=== PATIENT | female | born 1990 | race Caucasian/White ===

== ENCOUNTER 2024-05-16 01:16 | Inpatient (IN) | payer OTHER ==
[2024-05-16] MEDS ORDERED: PHYTONADIONE 1 MG/0.5 ML SYRINGE ONE (01:56)
[2024-05-16] MEDS ORDERED: ERYTHROMYCIN 5 MG/GM OPHTH OINT 1 GM TUBE ONE (01:57)
[2024-05-16] MEDS ORDERED: OXYTOCIN IV ONE (01:57)
[2024-05-16] MEDS ORDERED: LIDOCAINE 0.5% (PF) 5 MG/ML (50 ML SDV) ONE (01:57)
[2024-05-16] MEDS ORDERED: NS IV ONE (01:57)
[2024-05-16] MEDS ORDERED: NALBUPHINE 10 MG/ML (10 ML MDV) ONE ×3 (06:10→11:47)
[2024-05-16] MEDS ORDERED: CITRIC ACID-SODIUM CITRATE 15 ML CUP ONE (10:49)
[2024-05-16] MEDS ORDERED: PHENYLEPHRINE 10 MG/ML VIAL ONE (10:56)
[2024-05-16] MEDS ORDERED: diphenhydrAMINE 50 MG/ML 1 ML VIAL ONE (10:56)
[2024-05-16] MEDS ORDERED: MORPHINE SULFATE (PF) 0.3 MG/0.3 ML SYR ONE (10:56)
[2024-05-16] MEDS ORDERED: KETOROLAC 30 MG/ML 1 ML VIAL ONE (10:56)
[2024-05-16] MEDS ORDERED: OXYTOCIN 30 UNITS/500 ML NS BAG IV ONE (10:56)
[2024-05-16] MEDS ORDERED: ACETAMINOPHEN TAB 500 MG TAB ONE ×2 (14:25→20:57)
[2024-05-16] MEDS ORDERED: IBUPROFEN 600 MG TAB PO ONE (17:22)
[2024-05-17] MEDS ORDERED: ACETAMINOPHEN TAB 500 MG TAB ONE ×4 (03:05→20:57)
[2024-05-17] MEDS ORDERED: IBUPROFEN 600 MG TAB PO ONE ×4 (05:58→23:47)
[2024-05-17] MEDS ORDERED: SENNOSIDES-DOCUSATE SODIUM 1 EACH TAB PO ONE (21:00)
[2024-05-18] MEDS ORDERED: ACETAMINOPHEN TAB 500 MG TAB ONE ×3 (02:59→08:46)
[2024-05-18] MEDS ORDERED: IBUPROFEN 600 MG TAB PO ONE ×2 (06:02→11:10)
[2024-05-18] MEDS ORDERED: SENNOSIDES-DOCUSATE SODIUM 1 EACH TAB PO ONE (08:35)
== END 2024-05-18 11:50 | disposition home or self-care (01) | DRG 788 ==
LOC: 4FBP 01:16 → UNDOADMIN 01:16 → UNDODISIN 05-18 11:50
PROVIDERS: ADMIT Obstetrics & Gynecology; ATTEND Obstetrics & Gynecology
PROC: 10D00Z1 Extraction of Products of Conception, Low, Open Approach (ICD-10-PCS; principal; 2024-05-16 10:30)
DX: O45.93 Premature separation of placenta, unspecified, third trimester (principal); Z37.0 Single live birth; Z3A.37 37 weeks gestation of pregnancy
CPT/HCPCS: 85461; 86850; 86870; 86880; 86900; 86901; 88307

== ENCOUNTER 2024-05-16 01:16 | Inpatient (IN) | payer OTHER | END 2024-05-18 12:50 | disposition home or self-care (01) | DRG 788 | LOC: 4FBP 01:16 → UNDODISIN 05-18 12:50 | PROVIDERS: ADMIT Obstetrics & Gynecology; ATTEND Obstetrics & Gynecology | PROC: 3E0234Z Introduction of Serum, Toxoid and Vaccine into Muscle, Percutaneous Approach (ICD-10-PCS; principal; 2024-05-16) | PROC: 10D00Z1 Extraction of Products of Conception, Low, Open Approach (ICD-10-PCS; principal; 2024-05-16) | PROC: 10907ZC Drainage of Amniotic Fluid, Therapeutic from Products of Conception, Via Natural or Artificial Opening (ICD-10-PCS; principal; 2024-05-16) | DX: O45.93 Premature separation of placenta, unspecified, third trimester (principal); O76 Abnormality in fetal heart rate and rhythm complicating labor and delivery; O26.893 Other specified pregnancy related conditions, third trimester; Z67.41 Type O blood, Rh negative; Z88.8 Allergy status to other drugs, medicaments and biological substances; Z88.5 Allergy status to narcotic agent; Z91.040 Latex allergy status; Z3A.37 37 weeks gestation of pregnancy; Z37.0 Single live birth ==

== ENCOUNTER 2024-06-21 20:57 | Emergency (ER) | payer OTHER ==
[2024-06-21 21:03] VITALS: RESP 18; TEMP 97.9
--- NOTE | 2024-06-21 21:22 | ED ---
Abdominal Pain HPI - General Chief Complaint: Abdominal Pain Stated Complaint: Abd Pain Time Seen by Provider: 06/21/24 21:05 Source: patient, RN notes reviewed Mode of arrival: ambulatory Limitations: no limitations - History of Present Illness Initial Comments: This is a 33-year-old female who presents to the emergency department for abdominal pain. Patient reports right upper quadrant abdominal pain that has been intermittent for the last month. States that this started after she had a on 05/16. Pain changes between sharp and stabbing. Reports associated nausea and vomiting. Denies any fever/chills or changes in bowel habits. Prior to the she had never experienced anything like this before. The pain wraps around into her back and epigastric region as well. Also reports shortness of breath. MD Complaint: abdominal pain - Related Data Home Medications Medication Instructions Recorded Confirmed Ferrous Sulfate [Iron] 325 mg PO DAILY 05/03/24 05/03/24 Vit No.179/Iron/Folic 1 each PO DAILY 05/03/24 05/03/24 [ Tablet] Previous Rx's Medication Instructions Recorded Ketorolac [Toradol] 10 mg PO Q6HR PRN #15 tab 06/21/24 Metoclopramide [Reglan] 10 mg PO Q6H PRN #15 tab 06/21/24 Allergies Allergy/AdvReac Type Severity Reaction Status Date / Time codeine Allergy Severe Anaphylaxis Verified 05/03/24 00:06 ondansetron Allergy Severe Anaphylaxis Verified 05/03/24 00:06 [From Zofran (as hydrochloride)] Review of Systems ROS Statement: Those systems with pertinent positive or pertinent negative responses have been documented in the HPI. ROS Other: All systems not noted in ROS Statement are negative. Past Medical History Past Medical History: No Reported History History of Any Multi-Drug Resistant Organisms: None Reported Past Surgical History: Appendectomy, Section Past Psychological History: No Psychological Hx Reported Smoking Status: Former smoker Past Alcohol Use History: None Reported Past Drug Use History: None Reported General Exam Limitations: no limitations General appearance: alert, in distress Head exam: Present: atraumatic, normocephalic, normal inspection Respiratory exam: Present: normal lung sounds bilaterally. Absent: respiratory distress, wheezes, rales, rhonchi, stridor Cardiovascular Exam: Present: regular rate, normal rhythm, normal heart sounds. Absent: systolic murmur, diastolic murmur, rubs, gallop, clicks GI/Abdominal exam: Present: soft, tenderness (RUQ), normal bowel sounds. Absent: distended Neurological exam: Present: alert, oriented X3, CN II-XII intact Psychiatric exam: Present: normal affect, normal mood Skin exam: Present: warm, dry, intact, normal color. Absent: rash Course Vital Signs 06/21/24 06/21/24 06/21/24 21:00 22:45 23:57 Temperature 97.9 F Pulse Rate 121 H 70 76 Respiratory 18 18 18 Rate Blood Pressure 140/96 140/90 119/70 O2 Sat by Pulse 100 100 99 Oximetry Medical Decision Making - Medical Decision Making This is a 33 year old female who presents to the emergency department for abdominal pain. Was pt. sent in by a medical professional or institution? @ -No Did you speak to anyone other than the patient for history? @ -No Did you review nursing and triage notes? @ -Yes, and I agree, it is accurate with regards to the patient's symptoms. Were old charts reviewed? @ -No Differential Diagnosis? @ -Differential Abdominal Pain Women: Appendicitis, Cholecystitis, diverticulosis, ischemic bowel, pancreatitis, hepatitis, UTI, gastroenteritis, AAA, incarcerated hernia, bowel obstruction, constipation, inflammatory bowel, hepatitis, peptic ulcer disease, splenic infarction, perforated viscus, vulvitis, ovarian torsion, PID, kidney stone, placenta abruption, this is not meant to be an all-inclusive list EKG interpreted by me (3pts min.)? @ -Not obtained X-rays interpreted by me (1pt min.)? @ -Not obtained CT interpreted by me (1pt min.)? @ -CTA of the chest obtained. My interpretation identifies no evidence of a p ulmonary embolus. CT scan of the abdomen and pelvis obtained. My interpretation identifies no bowel wall thickening or free air. U/S interpreted by me (1pt. min.)? @ -Gallbladder ultrasound obtained. My interpretation identifies no evidence of cholelithiasis. What testing was considered but not performed? (CT, X-rays, U/S, labs)? Why? @ -None What meds were considered but not given? Why? @ -None Did you discuss the management of the patient with other professionals? @ -No Did you reconcile home meds? @ -No Was smoking cessation discussed for >3mins.? @ -No Was critical care preformed (if so, how long)? @ -No Were there social determinants of health that impacted care today? How? (Homelessness, low income, unemployed, alcoholism, drug addiction, transportation, low edu. Level, literacy, decrease access to med. care, snf, rehab)? @ -No Was there de-escalation of care discussed even if they declined? (Discuss DNR or withdrawal of care, Hospice)? @ -No What co-morbidities impacted this encounter? (DM, HTN, Smoking, COPD, CAD, Cancer, CVA, Hep., AIDS, mental health diagnosis, sleep apnea, morbid obesity)? @ -None Was patient admitted / discharged? @ -Discharged. Lab work demonstrates an elevated D-dimer of 0.90. Lipase mildly elevated at 340. Lab work otherwise unremarkable. Urinalysis grossly contaminated. Gallbladder ultrasound obtained revealing no acute process. Given the right upper quadrant pain with radiation into the chest and back, tachycardia, and shortness of breath, CTA of the chest was obtained. We did also include the abdomen and pelvis for further evaluation. CTA of the chest and CT scan of the abdomen and pelvis revealed no acute process. Pain was managed in the emergency department. Prescription for Toradol and Reglan provided with dosing instructions reviewed. Patient discharged home in stable condition. Advised close follow up with her PCP. Case discussed with ED attending, Dr. Jacobs. Return precautions reviewed in depth, the patient is instructed to return to the emergency department with any new, worsening, or concerning symptoms. Patient verbalized understanding. Undiagnosed new problem with uncertain prognosis? @ -None Drug Therapy requiring intensive monitoring for toxicity (Heparin, Nitro, Insulin, Cardizem)? @ -None Were any procedures done? @ -None Diagnosis/symptom? @ -Right upper quadrant pain, nausea and vomiting Acute, or Chronic, or Acute on Chronic? @ -Acute Uncomplicated (without systemic symptoms) or Complicated (systemic symptoms)? @ -Uncomplicated Side effects of treatment? @ -None Exacerbation, Progression, or Severe Exacerbation] @ -Not applicable Poses a threat to life or bodily function? @ -No - Lab Data Result diagrams: 06/21/24 21:15 06/21/24 21:15 Lab Results 06/21/24 06/21/24 06/21/24 Range/Units 21:15 21:15 21:15 WBC 7.0 (3.8-10.6) k/uL RBC 4.81 (3.80-5.40) m/uL Hgb 10.7 L (11.4-16.0) gm/dL Hct 35.9 (34.0-46.0) % MCV 74.6 L D (80.0-100.0) fL MCH 22.2 L (25.0-35.0) pg MCHC 29.8 L (31.0-37.0) g/dL RDW 16.1 H (11.5-15.5) % Plt Count 405 D (150-450) k/uL MPV 8.0 Neutrophils % 73 % Lymphocytes % 19 % Monocytes % 5 % Eosinophils % 1 % Basophils % 1 % Neutrophils # 5.1 (1.3-7.7) k/uL Lymphocytes # 1.3 (1.0-4.8) k/uL Monocytes # 0.3 (0-1.0) k/uL Eosinophils # 0.0 (0-0.7) k/uL Basophils # 0.1 (0-0.2) k/uL Hypochromasia Marked Anisocytosis Slight Microcytosis Slight PT (10.0-12.5) sec INR (<1.2) APTT (22.0-30.0) sec D-Dimer (<0.60) mg/L FEU Sodium 139 (137-145) mmol/L Potassium 4.5 (3.5-5.1) mmol/L Chloride 101 (98-107) mmol/L Carbon Dioxide 26 (22-30) mmol/L Anion Gap 12 mmol/L BUN 13 (7-17) mg/dL Creatinine 0.62 (0.52-1.04) mg/dL Est GFR (CKD-EPI)AfAm >90 (>60 ml/min/1.73 sqM) Est GFR (CKD-EPI)NonAf >90 (>60 ml/min/1.73 sqM) Glucose 113 H (74-99) mg/dL Plasma Lactic Acid Young 1.1 (0.7-2.0) mmol/L Calcium 10.7 H (8.4-10.2) mg/dL Total Bilirubin 0.8 (0.2-1.3) mg/dL AST 32 (14-36) U/L ALT 18 (4-34) U/L Alkaline Phosphatase 138 H (38-126) U/L Troponin I (0.000-0.034) ng/mL Total Protein 9.1 H (6.3-8.2) g/dL Albumin 5.0 (3.5-5.0) g/dL Amylase 110 (30-110) U/L Lipase 340 H (23-300) U/L Urine Color Urine Appearance (Clear) Urine pH (5.0-8.0) Ur Specific [place] (1.001-1.035) Urine Protein (Negative) Urine Glucose (UA) (Negative) Urine Ketones (Negative) Urine Blood (Negative) Urine Nitrite (Negative) Urine Bilirubin (Negative) Urine Urobilinogen (<2.0) mg/dL Ur Leukocyte Esterase (Negative) Urine RBC (0-5) /hpf Urine WBC (0-5) /hpf Ur Squamous Epith Cells (0-4) /hpf Hyaline Casts (0-2) /lpf Urine Mucus (None) /hpf Urine Yeast (Budding) (None) /hpf 06/21/24 06/21/24 06/21/24 Range/Units 21:15 21:15 22:15 WBC (3.8-10.6) k/uL RBC (3.80-5.40) m/uL Hgb (11.4-16.0) gm/dL Hct (34.0-46.0) % MCV (80.0-100.0) fL MCH (25.0-35.0) pg MCHC (31.0-37.0) g/dL RDW (11.5-15.5) % Plt Count (150-450) k/uL MPV Neutrophils % % Lymphocytes % % Monocytes % % Eosinophils % % Basophils % % Neutrophils # (1.3-7.7) k/uL Lymphocytes # (1.0-4.8) k/uL Monocytes # (0-1.0) k/uL Eosinophils # (0-0.7) k/uL Basophils # (0-0.2) k/uL Hypochromasia Anisocytosis Microcytosis PT 10.1 (10.0-12.5) sec INR 0.9 (<1.2) APTT 22.7 (22.0-30.0) sec D-Dimer 0.90 H (<0.60) mg/L FEU Sodium (137-145) mmol/L Potassium (3.5-5.1) mmol/L Chloride (98-107) mmol/L Carbon Dioxide (22-30) mmol/L Anion Gap mmol/L BUN (7-17) mg/dL Creatinine (0.52-1.04) mg/dL Est GFR (CKD-EPI)AfAm (>60 ml/min/1.73 sqM) Est GFR (CKD-EPI)NonAf (>60 ml/min/1.73 sqM) Glucose (74-99) mg/dL Plasma Lactic Acid [place] (0.7-2.0) mmol/L Calcium (8.4-10.2) mg/dL Total Bilirubin (0.2-1.3) mg/dL AST (14-36) U/L ALT (4-34) U/L Alkaline Phosphatase (38-126) U/L Troponin I <0.012 (0.000-0.034) ng/mL Total Protein (6.3-8.2) g/dL Albumin (3.5-5.0) g/dL Amylase (30-110) U/L Lipase (23-300) U/L Urine Color Yellow Urine Appearance Cloudy H (Clear) Urine pH 6.0 (5.0-8.0) Ur Specific [place] 1.026 (1.001-1.035) Urine Protein 1+ H (Negative) Urine Glucose (UA) Negative (Negative) Urine Ketones Negative (Negative) Urine Blood Small H (Negative) Urine Nitrite Negative (Negative) Urine Bilirubin Negative (Negative) Urine Urobilinogen <2.0 (<2.0) mg/dL Ur Leukocyte Esterase Large H (Negative) Urine RBC 5 (0-5) /hpf Urine WBC 20 H (0-5) /hpf Ur Squamous Epith Cells 20 H (0-4) /hpf Hyaline Casts 7 H (0-2) /lpf Urine Mucus Many H (None) /hpf Urine Yeast (Budding) Rare H (None) /hpf - Radiology Data Radiology results: report reviewed, image reviewed Disposition Clinical Impression: Abdominal pain, Nausea and vomiting Disposition: HOME SELF-CARE Condition: Good Instructions (If sedation given, give patient instructions): Abdominal Pain (ED) Additional Instructions: Return to the emergency department with any new, worsening, or concerning symptoms. Take the Toradol with Tylenol as needed for pain relief. If you choose to take the Toradol, do not take any other anti-inflammatories such as ibuprofen, take one or the other. You can take the Reglan up to every 6 hours as needed for nausea and vomiting. Follow up with your primary care provider in 1-2 days. Prescriptions: Metoclopramide [Reglan] 10 mg PO Q6H PRN #15 tab PRN Reason: Nausea And Vomiting Ketorolac [Toradol] 10 mg PO Q6HR PRN #15 tab PRN Reason: Pain Is patient prescribed a controlled substance at d/c from ED?: No Referrals: Gilbert Can MD [Primary Care Provider] - 1-2 days
[2024-06-21] MEDS: HYDROmorphone 0.5 MG/0.5 ML SYRINGE IVP STA ×2 (21:23→23:55)
[2024-06-21] MEDS: METOCLOPRAMIDE 5 MG/ML 2 ML VIAL IVP STA (21:24)
[2024-06-21] MEDS: SODIUM CHLORIDE 0.9% 1,000 ML IV STA (21:24)
[2024-06-21] MEDS: KETOROLAC 15 MG/ML 1 ML VIAL IVP STA (21:24)
[2024-06-21 21:34] LABS: Anisocytosis Slight; Basophils # (A) 0.1 k/uL (0-0.2); Basophils % (A) 1 %; Eosinophils % (A) 1 %; HGB 10.7 gm/dL (11.4-16.0); Hypochromasia Marked; Lymphocytes # (A) 1.3 k/uL (1.0-4.8); Lymphocytes % (A) 19 %; MCH 22.2 pg (25.0-35.0); MCHC 29.8 g/dL (31.0-37.0); MCV 74.6 fL (80.0-100.0); Microcytosis Slight; Monocytes # (A) 0.3 k/uL (0-1.0); Monocytes % (A) 5 %; Neutrophils # (A) 5.1 k/uL (1.3-7.7); Neutrophils % (A) 73 %; RBC 4.81 m/uL (3.80-5.40); RDW 16.1 % (11.5-15.5)
[2024-06-21 21:36] LABS: HCT 35.9 % (34.0-46.0); Platelet Count 405 k/uL (150-450)
[2024-06-21 21:39] LABS: ALT 18 U/L (4-34); AST 32 U/L (14-36); African American GFR (CKD) >90 (>60 ml/min/1.73 sqM); Alkaline Phosphatase 138 U/L (38-126); Amylase 110 U/L (30-110); Anion Gap 12 mmol/L; Blood Urea Nitrogen 13 mg/dL (7-17); Calcium 10.7 mg/dL (8.4-10.2); Carbon Dioxide 26 mmol/L (22-30); Chloride 101 mmol/L (98-107); Glucose 113 mg/dL (74-99); Lipase 340 U/L (23-300); Non-African American GFR(CKD) >90 (>60 ml/min/1.73 sqM); Potassium 4.5 mmol/L (3.5-5.1); Sodium 139 mmol/L (137-145); Total Bilirubin 0.8 mg/dL (0.2-1.3); Total Protein 9.1 g/dL (6.3-8.2)
--- NOTE | 2024-06-21 22:08 | US ---
EXAMINATION TYPE: US gallbladder DATE OF EXAM: 06/21/2024 COMPARISON: CT 2016 CLINICAL INDICATION: Female, 33 years old with history of RUQ pain; Pain since 05/20/24. Hx appendecto my. TECHNIQUE: Multiple sonographic images of the right upper quadrant are obtained. FINDINGS: EXAM MEASUREMENTS: Liver Length: 13.0 cm Gallbladder Wall: 0.24 cm CBD: 0.45 cm Right Kidney: 10.8 x 4.9 x 3.4 cm SHOP FITTER NOTES: Exam is limited due to gas. Pancreas: Slightly limited. Duct measures 2.2 mm at body. Liver: Appears wnl Gallbladder: Appears anechoic Evidence for sonographic Milian's sign: no CBD: Portions seen appear wnl Right Kidney: No hydronephrosis or masses seen IMPRESSION: 1. Unremarkable right upper quadrant ultrasound [facility], , 06/21/2024 10:05 PM
[2024-06-21 22:51] LABS: INR 0.9 (<1.2); Partial Thromboplastin Time 22.7 sec (22.0-30.0); Prothrombin Time 10.1 sec (10.0-12.5)
[2024-06-21 23:07] LABS: Appearance,Urine Cloudy (Clear); Bilirubin,Urine Negative (Negative); Blood,Urine Small (Negative); Budding Yeast,Urine Rare /hpf; Color,Urine Yellow; Glucose,Urine (UA) Negative (Negative); Hyaline Casts,Urine 7 /lpf (0-2); Ketones,Urine Negative (Negative); Leukocyte Esterase,Urine Large (Negative); Mucus,Urine Many /hpf; Nitrite,Urine Negative (Negative); Protein,Urine 1+ (Negative); RBC,Urine 5 /hpf (0-5); Specific Gravity,Urine 1.026 (1.001-1.035); Squamous Epithelial Cell,Urine 20 /hpf (0-4); Urobilinogen,Urine <2.0 mg/dL (<2.0); WBC,Urine 20 /hpf (0-5)
--- NOTE | 2024-06-21 23:36 | CT ---
EXAMINATION TYPE: CT chest angio for PE DATE OF EXAM: 06/21/2024 COMPARISON: NONE HISTORY: PT HAD ON 8-[address] DLP: 201.8 mGycm. Automated Exposure Control for Dose Reduction was Utilized. CONTRAST: CTA scan of the thorax is performed with IV Contrast, patient injected with 100 mL of Isovue 370, pul monary embolism protocol. MIP Images are created on CT scanner and reviewed. FINDINGS: LUNGS: The lungs are grossly clear, there is no concerning parenchymal mass or focal consolidation id entified. There is no pleural effusion or pneumothorax seen. The tracheobronchial tree is patent. MEDIASTINUM: There is satisfactory enhancement of the pulmonary artery and its branches, there is no CT evidence for pulmonary embolism. There are no greater than 1 cm hilar or mediastinal lymph nodes. No cardiomegaly or pericardial effusion is seen. Enhancement of the thoracic aorta without aneurys m or dissection. OTHER: Please refer to same day CT abdomen and pelvis report for complete details on the upper abdome n. IMPRESSION: No CT evidence for acute pulmonary embolism. No suspicious acute pulmonary process. [facility], , 06/21/2024 11:34 PM
--- NOTE | 2024-06-21 23:45 | CT ---
EXAMINATION TYPE: CT abdomen pelvis w con DATE OF EXAM: 06/21/2024 HISTORY: PT HAD C-SECITON ON 8-15 EPIGASTRIC PAIN THAT GOES TO BACK. CT DLP: 341.2mGycm Automated Exposure Control for Dose Reduction was Utilized. CONTRAST: CT scan of the abdomen and pelvis is performed with IV Contrast, patient injected with 100 mL of Isov ue 370. COMPARISON: Prior CT 2016 FINDINGS: LUNG BASES: Please refer to same-day CT chest report for complete details of the lung bases. LIVER/GB: No significant abnormality is appreciated. PANCREAS: No significant abnormality is seen. SPLEEN: No significant abnormality is seen. ADRENALS: No significant abnormality is seen. KIDNEYS: No significant abnormality is seen. BOWEL: No abnormal small or large bowel dilatation. Appendix is surgically absent. UTERUS/ADNEXA: Anteverted uterus. LYMPH NODES: No greater than 1cm abdominal or pelvic lymph nodes are appreciated. OSSEOUS STRUCTURES: No significant abnormality is seen. OTHER: No significant additional abnormality is seen. IMPRESSION: No significant acute finding is seen to account for patient's clinical symptoms. [facility], , 06/21/2024 11:43 PM
[2024-06-21 23:57] VITALS: BP 119/70; PULSE 76
== END 2024-06-21 23:57 | disposition home or self-care (01) ==
LOC: EC 20:57
CPT/HCPCS: 36415; 71275; 74177; 76705; 80053; 81001; 82150; 83605; 83690; 84484; 85025; 85379; 85610; 85730; 96361; 96374; 96375; 96376; 99284

== ENCOUNTER 2024-06-23 18:42 | Inpatient (IN) | payer OTHER ==
--- NOTE | 2024-06-23 19:03 | ED ---
Abdominal Pain HPI - General Chief Complaint: Abdominal Pain Stated Complaint: Back Pain Time Seen by Provider: 06/23/24 18:59 Source: patient, RN notes reviewed Mode of arrival: ambulatory Limitations: no limitations - History of Present Illness Initial Comments: 33-year-old female presenting with epigastric pain x 1 month status post C- section on May 16. Patient describes pain as sharp and burning worse in the right upper quadrant that radiates to the back. Patient reports that pain is worse with food intake. Patient was seen for this 2 days ago in the ER where ultrasound of the gallbladder, CT of the chest rule out PE, and CT of the abdom en and pelvis all returned negative. She was discharged with no definitive diagnosis, but reports pain has become constant and is worsening in severity. Denies urinary symptoms, fever, chills. No drainage or redness from incision sites. She has been following with OB who initially told her he believed the pain was musculoskeletal. She does have a history of an appendectomy, no other abdominal surgeries besides . - Related Data Home Medications Medication Instructions Recorded Confirmed Ferrous Sulfate [Iron] 325 mg PO DAILY 05/03/24 05/03/24 Vit No.179/Iron/Folic 1 each PO DAILY 05/03/24 05/03/24 [ Tablet] Previous Rx's Medication Instructions Recorded Ketorolac [Toradol] 10 mg PO Q6HR PRN #15 tab 06/21/24 Metoclopramide [Reglan] 10 mg PO Q6H PRN #15 tab 06/21/24 Allergies Allergy/AdvReac Type Severity Reaction Status Date / Time codeine Allergy Severe Anaphylaxis Verified 06/23/24 18:45 ondansetron Allergy Severe Anaphylaxis Verified 06/23/24 18:45 [From Zofran (as hydrochloride)] Review of Systems ROS Statement: Those systems with pertinent positive or pertinent negative responses have been documented in the HPI. ROS Other: All systems not noted in ROS Statement are negative. Past Medical History Past Medical History: No Reported History History of Any Multi-Drug Resistant Organisms: None Reported Past Surgical History: Appendectomy, Section Past Psychological History: No Psychological Hx Reported Smoking Status: Former smoker Past Alcohol Use History: None Reported Past Drug Use History: None Reported General Exam Limitations: no limitations General appearance: alert, in no apparent distress, anxious Head exam: Present: atraumatic, normocephalic, normal inspection Respiratory exam: Present: normal lung sounds bilaterally. Absent: respiratory distress, wheezes, rales, rhonchi, stridor Cardiovascular Exam: Present: regular rate, normal rhythm, normal heart sounds. Absent: systolic murmur, diastolic murmur, rubs, gallop, clicks GI/Abdominal exam: Present: soft, normal bowel sounds. Absent: distended, tenderness, guarding, rebound, rigid Neurological exam: Present: alert, oriented X3 Psychiatric exam: Present: normal affect, normal mood Skin exam: Present: warm, dry, intact, normal color. Absent: rash Course Vital Signs 06/23/24 06/23/24 18:43 21:00 Temperature 97.9 F Pulse Rate 122 H 77 Respiratory 16 18 Rate Blood Pressure 141/93 117/68 O2 Sat by Pulse 99 99 Oximetry Medical Decision Making - Medical Decision Making Was pt. sent in by a medical professional or institution (, PA, CEO [employer] CO FOUNDER, urgent care, hospital, or care home...) When possible be specific @ -No Did you speak to anyone other than the patient for history (EMS, parent, family, police, friend...)? What history was obtained from this source @ -No Did you review nursing and triage notes (agree or disagree)? Why? @ -I reviewed and agree with nursing and triage notes Were old charts reviewed (outside hosp., previous admission, EMS record, old EKG, old radiological studies, urgent care reports/EKG's, care home records)? Report findings @ -ER visit from 2 days ago reviewed including lab work and CT scans all largely unremarkable Differential Diagnosis (chest pain, altered mental status, abdominal pain women, abdominal pain men, vaginal bleeding, weakness, fever, dyspnea, syncope, he adache, dizziness, GI bleed, back pain, seizure, CVA, palpatations, mental health, musculoskeletal)? @ -Differential Abdominal Pain Women: Appendicitis, Cholecystitis, diverticulosis, ischemic bowel, pancreatitis, hepatitis, UTI, gastroenteritis, AAA, incarcerated hernia, bowel obstruction, constipation, inflammatory bowel, hepatitis, peptic ulcer disease, splenic infarction, perforated viscus, vulvitis, ovarian torsion, PID, kidney stone, placenta abruption, this is not meant to be an all-inclusive list EKG interpreted by me (3pts min.). @ -As above X-rays interpreted by me (1pt min.). @ -None done CT interpreted by me (1pt min.). @ -None done U/S interpreted by me (1pt. min.). @ -None done What testing was considered but not performed or refused? (CT, X-rays, U/S, labs)? Why? @ -Imaging not performed due to patient had gallbladder ultrasound, CT of abdomen pelvis, and CT PE 2 days ago which were unremarkable What meds were considered but not given or refused? Why? @ -None Did you discuss the management of the patient with other professionals (professionals i.e. , PA, CEO [employer] FOUNDER, lab, RT, psych nurse, social insurance analyst, excelsior machine tender, teacher, dairy quality assurance officer, investment manager)? Give summary @ -I spoke with Dr. Carter who accepts admission at this time for intractable epigastric pain Was smoking cessation discussed for >3mins.? @ -No Was critical care preformed (if so, how long)? @ -No Were there social determinants of health that impacted care today? How? (Homelessness, low income, unemployed, alcoholism, drug addiction, transportation, low edu. Level, literacy, decrease access to med. care, correction, rehab)? @ -No Was there de-escalation of care discussed even if they declined (Discuss DNR or withdrawal of care, Hospice)? DNR status @ -No What co-morbidities impacted this encounter? (DM, HTN, Smoking, COPD, CAD, Cancer, CVA, ARF, Chemo, Hep., AIDS, mental health diagnosis, sleep apnea, morb id obesity)? @ -None Was patient admitted / discharged? Hospital course, mention meds given and rout e, prescriptions, significant lab abnormalities, going to OR and other pertinent info. @ -Patient was admitted. This is a 33-year-old female presenting with right upper quadrant abdominal pain x 1 month status post . Patient was seen for this complaint 2 days ago where ultrasound of the gallbladder, CT abdomen pelvis, CT chest PE was performed and all returned unremarkable. Patient is mildly tachycardic, she is afebrile, blood pressure is stable. Abdomen is soft and nontender. Patient is provided with IV fluids and analgesics. Laboratory studies including CBC, CMP, lipase, lactic acid, troponin are remarkable for decreased hemoglobin of 9.2, previously 10.7 2 days ago. Occult test was then performed which was negative. Upon reevaluation, patient continues to have intractable pain. I spoke with Dr. Carter who accepts admission at this time for intractable epigastric pain. Case was discussed with the ED attending Dr. Flores. Undiagnosed new problem with uncertain prognosis? @ -No Drug Therapy requiring intensive monitoring for toxicity (Heparin, Nitro, Insulin, Cardizem)? @ -No Were any procedures done? @ -No Diagnosis/symptom? @ -Intractable epigastric pain Acute, or Chronic, or Acute on Chronic? @ -Acute Uncomplicated (without systemic symptoms) or Complicated (systemic symptoms)? @ -Complicated Side effects of treatment? @ -No Exacerbation, Progression, or Severe Exacerbation? @ -No Poses a threat to life or bodily function? How? (Chest pain, [place], [place], pneumonia, PE, COPD, DKA, ARF, appy, cholecystitis, CVA, Diverticulitis, Homicidal, Suicidal, threat to staff... and all critical care pts) @ -Unlikely - Lab Data Result diagrams: 06/23/24 19:30 06/23/24 19:30 Lab Results 06/23/24 06/23/24 06/23/24 Range/Units 19:30 19:30 19:30 WBC 5.9 (3.8-10.6) k/uL RBC 4.10 (3.80-5.40) m/uL Hgb 9.2 L D (11.4-16.0) gm/dL Hct 30.3 L (34.0-46.0) % MCV 74.0 L (80.0-100.0) fL MCH 22.3 L (25.0-35.0) pg MCHC 30.2 L (31.0-37.0) g/dL RDW 16.3 H (11.5-15.5) % Plt Count 312 (150-450) k/uL MPV 8.4 Neutrophils % 76 % Lymphocytes % 16 % Monocytes % 5 % Eosinophils % 1 % Basophils % 1 % Neutrophils # 4.4 (1.3-7.7) k/uL Lymphocytes # 1.0 (1.0-4.8) k/uL Monocytes # 0.3 (0-1.0) k/uL Eosinophils # 0.0 (0-0.7) k/uL Basophils # 0.0 (0-0.2) k/uL Hypochromasia Marked Poikilocytosis Slight Anisocytosis Slight Microcytosis Slight Sodium 139 (137-145) mmol/L Potassium 4.1 (3.5-5.1) mmol/L Chloride 104 (98-107) mmol/L Carbon Dioxide 25 (22-30) mmol/L Anion Gap 10 mmol/L BUN 15 (7-17) mg/dL Creatinine 0.59 (0.52-1.04) mg/dL Est GFR (CKD-EPI)AfAm >90 (>60 ml/min/1.73 sqM) Est GFR (CKD-EPI)NonAf >90 (>60 ml/min/1.73 sqM) Glucose 107 H (74-99) mg/dL Plasma Lactic Acid Young 0.7 (0.7-2.0) mmol/L Calcium 10.0 (8.4-10.2) mg/dL Total Bilirubin 0.6 (0.2-1.3) mg/dL AST 30 (14-36) U/L ALT 16 (4-34) U/L Alkaline Phosphatase 99 (38-126) U/L Troponin I (0.000-0.034) ng/mL Total Protein 7.8 (6.3-8.2) g/dL Albumin 4.4 (3.5-5.0) g/dL Lipase 252 (23-300) U/L Urine Color Urine Appearance (Clear) Urine pH (5.0-8.0) Ur Specific Horatio (1.001-1.035) Urine Protein (Negative) Urine Glucose (UA) (Negative) Urine Ketones (Negative) Urine Blood (Negative) Urine Nitrite (Negative) Urine Bilirubin (Negative) Urine Urobilinogen (<2.0) mg/dL Ur Leukocyte Esterase (Negative) Urine RBC (0-5) /hpf Urine WBC (0-5) /hpf Ur Squamous Epith Cells (0-4) /hpf Calcium Oxalate Crystal (None) /hpf Amorphous Sediment (None) /hpf Hyaline Casts (0-2) /lpf Urine Mucus (None) /hpf Urine Yeast (Budding) (None) /hpf Stool Occult Blood (Negative) 06/23/24 06/23/24 06/23/24 Range/Units 19:30 21:38 23:33 WBC (3.8-10.6) k/uL RBC (3.80-5.40) m/uL Hgb (11.4-16.0) gm/dL Hct (34.0-46.0) % MCV (80.0-100.0) fL MCH (25.0-35.0) pg MCHC (31.0-37.0) g/dL RDW (11.5-15.5) % Plt Count (150-450) k/uL MPV Neutrophils % % Lymphocytes % % Monocytes % % Eosinophils % % Basophils % % Neutrophils # (1.3-7.7) k/uL Lymphocytes # (1.0-4.8) k/uL Monocytes # (0-1.0) k/uL Eosinophils # (0-0.7) k/uL Basophils # (0-0.2) k/uL Hypochromasia Poikilocytosis Anisocytosis Microcytosis Sodium (137-145) mmol/L Potassium (3.5-5.1) mmol/L Chloride (98-107) mmol/L Carbon Dioxide (22-30) mmol/L Anion Gap mmol/L BUN (7-17) mg/dL Creatinine (0.52-1.04) mg/dL Est GFR (CKD-EPI)AfAm (>60 ml/min/1.73 sqM) Est GFR (CKD-EPI)NonAf (>60 ml/min/1.73 sqM) Glucose (74-99) mg/dL Plasma Lactic Acid Young (0.7-2.0) mmol/L Calcium (8.4-10.2) mg/dL Total Bilirubin (0.2-1.3) mg/dL AST (14-36) U/L ALT (4-34) U/L Alkaline Phosphatase (38-126) U/L Troponin I <0.012 (0.000-0.034) ng/mL Total Protein (6.3-8.2) g/dL Albumin (3.5-5.0) g/dL Lipase (23-300) U/L Urine Color Yellow Urine Appearance Cloudy H (Clear) Urine pH 6.0 (5.0-8.0) Ur Specific [place]atio 1.036 H (1.001-1.035) Urine Protein 1+ H (Negative) Urine Glucose (UA) Negative (Negative) Urine Ketones 1+ H (Negative) Urine Blood Negative (Negative) Urine Nitrite Negative (Negative) Urine Bilirubin Negative (Negative) Urine Urobilinogen 3.0 (<2.0) mg/dL Ur Leukocyte Esterase Large H (Negative) Urine RBC 1 (0-5) /hpf Urine WBC 18 H (0-5) /hpf Ur Squamous Epith Cells 6 H (0-4) /hpf Calcium Oxalate Crystal Many H (None) /hpf Amorphous Sediment Rare H (None) /hpf Hyaline Casts 1 (0-2) /lpf Urine Mucus Many H (None) /hpf Urine Yeast (Budding) Rare H (None) /hpf Stool Occult Blood Negative (Negative) - EKG Data -: EKG Interpreted by Me EKG Comments: EKG reveals normal sinus rhythm with no ST changes. Ventricular rate 98 bpm, UT interval 129, QRS duration 98, QT/QTc 345/400 Disposition Clinical Impression: Intractable epigastric abdominal pain Disposition: ADMITTED IP TO THIS HOSP Referrals: Gilbert Can MD [Primary Care Provider] - 1-2 days Time of Disposition: 03:42
[2024-06-23] MEDS: KETOROLAC 15 MG/ML 1 ML VIAL IVP STA (19:42)
[2024-06-23] MEDS: SODIUM CHLORIDE 0.9% 1,000 ML IV STA (20:11)
[2024-06-23 20:32] LABS: Anisocytosis Slight; Basophils % (A) 1 %; Eosinophils % (A) 1 %; HCT 30.3 % (34.0-46.0); Hypochromasia Marked; Lymphocytes % (A) 16 %; MCH 22.3 pg (25.0-35.0); MCHC 30.2 g/dL (31.0-37.0); Mean Platelet Volume 8.4; Microcytosis Slight; Monocytes # (A) 0.3 k/uL (0-1.0); Monocytes % (A) 5 %; Neutrophils # (A) 4.4 k/uL (1.3-7.7); Neutrophils % (A) 76 %; Platelet Count 312 k/uL (150-450); Poikilocytosis Slight; RDW 16.3 % (11.5-15.5); WBC 5.9 k/uL (3.8-10.6)
[2024-06-23 20:41] LABS: HGB 9.2 gm/dL (11.4-16.0)
[2024-06-23 20:44] LABS: ALT 16 U/L (4-34); AST 30 U/L (14-36); African American GFR (CKD) >90 (>60 ml/min/1.73 sqM); Albumin 4.4 g/dL (3.5-5.0); Alkaline Phosphatase 99 U/L (38-126); Anion Gap 10 mmol/L; Blood Urea Nitrogen 15 mg/dL (7-17); Carbon Dioxide 25 mmol/L (22-30); Chloride 104 mmol/L (98-107); Glucose 107 mg/dL (74-99); Lipase 252 U/L (23-300); Non-African American GFR(CKD) >90 (>60 ml/min/1.73 sqM); Potassium 4.1 mmol/L (3.5-5.1); Sodium 139 mmol/L (137-145); Total Bilirubin 0.6 mg/dL (0.2-1.3); Total Protein 7.8 g/dL (6.3-8.2)
[2024-06-23] MEDS: HYDROmorphone 1 MG/ML 1 ML SYRINGE IVP STA (21:53)
[2024-06-23 22:04] LABS: Amorphous Sediment,Urine Rare /hpf; Appearance,Urine Cloudy (Clear); Bilirubin,Urine Negative (Negative); Blood,Urine Negative (Negative); Budding Yeast,Urine Rare /hpf; Calcium Oxalate Crystals,Urine Many /hpf; Color,Urine Yellow; Glucose,Urine (UA) Negative (Negative); Hyaline Casts,Urine 1 /lpf (0-2); Ketones,Urine 1+ (Negative); Leukocyte Esterase,Urine Large (Negative); Mucus,Urine Many /hpf; Nitrite,Urine Negative (Negative); Protein,Urine 1+ (Negative); RBC,Urine 1 /hpf (0-5); Specific Gravity,Urine 1.036 (1.001-1.035); Squamous Epithelial Cell,Urine 6 /hpf (0-4); WBC,Urine 18 /hpf (0-5)
[2024-06-24] MEDS: HYDROmorphone 1 MG/ML 1 ML SYRINGE IVP STA (00:49)
[2024-06-24] MEDS ORDERED: NALOXONE 0.4 MG/ML 1 ML VIAL IV PRN (03:39)
[2024-06-24] MEDS ORDERED: KETOROLAC 15 MG/ML 1 ML VIAL IVP PRN (03:39)
[2024-06-24] MEDS ORDERED: ACETAMINOPHEN TAB 325 MG TAB PO PRN (03:39)
[2024-06-24] MEDS: SODIUM CHLORIDE 0.9% 1,000 ML IV SCH (05:10)
[2024-06-24] MEDS: HYDROmorphone 1 MG/ML 1 ML SYRINGE IVP PRN (05:10)
--- NOTE | 2024-06-24 08:55 | P.HPIM ---
History of Present Illness H&P Date: 06/24/24 This is a 33-year-old female who presented to the emergency department with complaints of epigastric pain for the last month. Patient had a on May 16 and since patient has had a sharp and burning epigastric pain in the right upper quadrant that radiates to the back. Patient reports pain is worse with food intake. Recent imaging in the ER from a prior visit was negative. She reports pain is becoming more constant and is worsening in severity. Patient seen this morning laying in bed and is still reporting epigastric pain. Review of Systems Constitutional: Denies chills, Denies fever Cardiovascular: Denies chest pain, Denies dyspnea on exertion Respiratory: Denies cough, Denies dyspnea Gastrointestinal: Reports abdominal pain Musculoskeletal: Denies arm numbness/tingling, Denies leg numbness/tingling Neurological: Denies headaches, Denies weakness Past Medical History Past Medical History: No Reported History History of Any Multi-Drug Resistant Organisms: None Reported Past Surgical History: Appendectomy, Section Past Psychological History: No Psychological Hx Reported Smoking Status: Former smoker Past Alcohol Use History: None Reported Past Drug Use History: None Reported Medications and Allergies Home Medications Medication Instructions Recorded Confirmed Type Ferrous Sulfate [Iron] 325 mg PO DAILY 05/03/24 05/03/24 History Vit No.179/Iron/Folic 1 each PO DAILY 05/03/24 05/03/24 History [ Tablet] Ketorolac [Toradol] 10 mg PO Q6HR PRN #15 tab 06/21/24 Rx Metoclopramide [Reglan] 10 mg PO Q6H PRN #15 tab 06/21/24 Rx Allergies Allergy/AdvReac Type Severity Reaction Status Date / Time codeine Allergy Severe Anaphylaxis Verified 06/23/24 18:45 ondansetron Allergy Severe Anaphylaxis Verified 06/23/24 18:45 [From Zofran (as hydrochloride)] Physical Exam Vitals: Vital Signs Temp Pulse Pulse Resp BP BP Pulse Ox 06/24/24 07:00 98.1 F 82 16 129/92 100 06/24/24 05:30 104 H 18 118/85 97 06/24/24 04:00 71 18 110/66 97 06/24/24 00:00 73 18 121/72 99 06/23/24 21:00 77 18 117/68 99 06/23/24 18:43 97.9 F 122 H 16 141/93 99 Intake and Output 06/23/24 06/24/24 06/24/24 22:59 06:59 14:59 Other: Weight 53.524 kg 53.524 kg - Constitutional General appearance: cooperative, no acute distress - EENT Eyes: PERRLA - Neck Neck: no lymphadenopathy, normal ROM, no rigidity - Respiratory Respiratory: bilateral: CTA - Cardiovascular Rhythm: regular Heart sounds: normal: S1, S2 - Gastrointestinal General gastrointestinal: soft, tenderness - Integumentary Integumentary: normal, normal turgor - Psychiatric Psychiatric: A&O x's 3, appropriate affect, intact judgment & insight Results CBC & Chem 7: 06/23/24 19:30 06/23/24 19:30 Labs: Abnormal Lab Results - Last 24 Hours (Table) 06/23/24 06/23/24 06/23/24 Range/Units 19:30 19:30 21:38 Hgb 9.2 L D (11.4-16.0) gm/dL Hct 30.3 L (34.0-46.0) % MCV 74.0 L (80.0-100.0) fL MCH 22.3 L (25.0-35.0) pg MCHC 30.2 L (31.0-37.0) g/dL RDW 16.3 H (11.5-15.5) % Glucose 107 H (74-99) mg/dL Urine Appearance Cloudy H (Clear) Ur Specific [place] 1.036 H (1.001-1.035) Urine Protein 1+ H (Negative) Urine Ketones 1+ H (Negative) Ur Leukocyte Esterase Large H (Negative) Urine WBC 18 H (0-5) /hpf Ur Squamous Epith Cells 6 H (0-4) /hpf Calcium Oxalate Crystal Many H (None) /hpf Amorphous Sediment Rare H (None) /hpf Urine Mucus Many H (None) /hpf Urine Yeast (Budding) Rare H (None) /hpf Thrombosis Risk Factor Assmnt - Choose All That Apply Each Factor Represents 1 point: or Thrombosis Risk Factor Assessment Total Risk Factor Score: 1 Thrombosis Risk Factor Assessment Level: Low Risk Assessment and Plan (1) Intractable epigastric abdominal pain Current Visit: Yes Status: Acute Code(s): R10.13 - EPIGASTRIC PAIN SNOMED Code(s): 41231280 (2) History of Current Visit: Yes Status: Acute Code(s): Z98.891 - HISTORY OF UTERINE SCAR FROM PREVIOUS SURGERY SNOMED Code(s): 200053034 Plan: Start Protonix Consult to GI Patient seen and evaluated by nurse practitioner, physician in agreement with plan
[2024-06-24] MEDS: PANTOPRAZOLE 40 MG/10 ML VIAL IVP SCH (08:57)
[2024-06-24 20:24] LABS: Anisocytosis Slight; Basophils % (A) 1 %; Eosinophils # (A) 0.1 k/uL (0-0.7); Eosinophils % (A) 1 %; HCT 26.3 % (34.0-46.0); HGB 7.9 gm/dL (11.4-16.0); Hypochromasia Marked; Lymphocytes # (A) 1.2 k/uL (1.0-4.8); Lymphocytes % (A) 25 %; MCH 22.5 pg (25.0-35.0); MCHC 29.8 g/dL (31.0-37.0); MCV 75.5 fL (80.0-100.0); Mean Platelet Volume 9.4; Microcytosis Slight; Monocytes # (A) 0.3 k/uL (0-1.0); Monocytes % (A) 6 %; Neutrophils % (A) 66 %; Platelet Count 250 k/uL (150-450); Poikilocytosis Slight; RBC 3.49 m/uL (3.80-5.40); RDW 16.3 % (11.5-15.5); WBC 4.6 k/uL (3.8-10.6)
--- NOTE | 2024-06-25 08:55 | P.PN ---
Subjective Progress Note Date: 06/25/24 This is a 33-year-old female who presented to the emergency department with complaints of epigastric pain for the last month. Patient had a on May 16 and since patient has had a sharp and burning epigastric pain in the right upper quadrant that radiates to the back. Patient reports pain is worse with food intake. Recent imaging in the ER from a prior visit was negative. She reports pain is becoming more constant and is worsening in severity. Patient seen this morning laying in bed and is still reporting epigastric pain. 06/25/2024 Patient seen and evaluated laying in bed this morning. Patient reports she is still very uncomfortable from epigastric pain, and is having a difficult time getting comfortable in the bed. Patient was given Protonix yesterday, she reports it worked for a while but then pain returned. Dr. Blanco not vocational case manager this week. Will ask general surgeon to see her for possible scope. Patient reports it hurts to eat. Vitals are stable. Objective - Vital Signs Vital signs: Vital Signs Temp 98.2 F 06/25/24 07:10 Pulse 96 06/25/24 07:10 Resp 16 06/25/24 07:10 BP 131/82 06/25/24 07:10 Pulse Ox 99 06/25/24 07:10 FiO2 Intake & Output 06/24/24 06/25/24 06/25/24 18:59 06:59 18:59 Intake Total 954 Balance 954 Intake: Intake, IV Titration 600 Amount Sodium Chloride 0.9% 1, 600 000 ml @ 75 mls/hr IV . [id number] [facility] Rx#:[id number] Oral 354 Other: Voiding Method Toilet # Voids 2 - Constitutional General appearance: Present: cooperative, no acute distress - EENT Eyes: Present: PERRLA - Neck Neck: Present: normal ROM. Absent: lymphadenopathy, rigidity - Respiratory Respiratory: bilateral: CTA - Cardiovascular Rhythm: regular Heart sounds: normal: S1, S2 - Gastrointestinal General gastrointestinal: Present: soft, tenderness - Integumentary Integumentary: Present: normal, normal turgor - Psychiatric Psychiatric: Present: A&O x's 3, appropriate affect, intact judgment & insight - Labs CBC & Chem 7: 06/24/24 20:08 06/23/24 19:30 Labs: Abnormal Lab Results - Last 24 Hours (Table) 06/24/24 Range/Units 20:08 RBC 3.49 L (3.80-5.40) m/uL Hgb 7.9 L (11.4-16.0) gm/dL Hct 26.3 L (34.0-46.0) % MCV 75.5 L (80.0-100.0) fL MCH 22.5 L (25.0-35.0) pg MCHC 29.8 L (31.0-37.0) g/dL RDW 16.3 H (11.5-15.5) % Assessment and Plan (1) Intractable epigastric abdominal pain Current Visit: Yes Status: Acute Code(s): R10.13 - EPIGASTRIC PAIN SNOMED Code(s): 35703813 (2) History of Current Visit: Yes Status: Acute Code(s): Z98.891 - HISTORY OF UTERINE SCAR FROM PREVIOUS SURGERY SNOMED Code(s): 034408336 Plan: Consult to general surgery for possible EGD Check CBC and CMP in the morning. Patient seen and evaluated by nurse practitioner, physician in agreement with plan
[2024-06-25 09:10] LABS: ALT 11 U/L (8-44); AST 18 U/L (13-35); Albumin 3.8 g/dL (3.8-4.9); Albumin/Globulin Ratio 1.65 Ratio (1.60-3.17); Alkaline Phosphatase 94 U/L (41-126); Blood Urea Nitrogen 9.3 mg/dL (9.0-27.0); Calcium 8.9 mg/dL (8.7-10.3); Carbon Dioxide 24.4 mmol/L (21.6-31.8); Chloride 106 mmol/L (96-109); Globulin 2.3 g/dL (1.6-3.3); Glucose 91 mg/dL (70-110); Potassium 3.9 mmol/L (3.5-5.5); Sodium 140 mmol/L (135-145); Total Bilirubin <0.2 mg/dL (0.3-1.2); Total Protein 6.1 g/dL (6.2-8.2)
--- NOTE | 2024-06-25 11:35 | P.GSCN ---
History of Present Illness Consult date: 06/25/24 History of present illness: CHIEF COMPLAINT: Epigastric abdominal pain HISTORY OF PRESENT ILLNESS: This is a 33-year-old female who presented to hospital with complaints of epigastric and right upper quadrant abdominal pain x 1 month. Patient reports that the pain has been constant for the last week. She had been in the ER 2 days ago and had a gallbladder ultrasound completed that was normal and a CTA of the chest that ruled out PE and CT scan abdomen and pelvis which was normal. Patient reports nausea which is worse after eating. She has had some occasional episodes of vomiting. She has been taking Motrin almost 4 times a day 800 mg for the past 2 weeks. She reports having EGD she thinks about 12 years ago and does not remember results. She does have a known history of iron deficiency anemia. Patient denies any blood in her stools or melanotic stools. Patient had a in May 2024. PAST MEDICAL HISTORY: See below PAST SURGICAL HISTORY: See below MEDICATIONS: See below ALLERGIES: See below SOCIAL HISTORY: No illicit drug use. REVIEW OF SYSTEMS: CONSTITUTIONAL: Denies fever or chills. HEENT: Denies blurred vision, vision changes, or eye pain. Denies hemoptysis CARDIOVASCULAR: Denies chest pain or pressure. RESPIRATORY: No shortness of breath. GASTROINTESTINAL: See HPI for pertinent findings HEMATOLOGIC: Denies bleeding disorders. GENITOURINARY: Denies any blood in urine or increased urinary frequency. SKIN: Denies pruitis. Denies rash. PHYSICAL EXAM: VITAL SIGNS: Reviewed GENERAL: Well-developed in no acute distress. ABDOMEN: Soft. Nondistended. Epigastric and right upper quadrant tenderness with palpation NEUROLOGIC: Alert and oriented. Cranial nerves II through XII grossly intact. LABORATORY DATA: WBC 4.6 hemoglobin 9.2 down to 7.9. Hemoglobin 11.0 in May Sodium 140 potassium 3.9 creatinine 0.6 LFTs normal Lipase 252 Stool for occult blood negative IMAGING: Gallbladder ultrasound unremarkable right upper quadrant ultrasound. Chest CTA no evidence for PE. No acute pulmonary process CT scan abdomen pelvis reports no acute findings. ASSESSMENT: 1. Epigastric abdominal pain 2. Microcytic anemia 3. Daily NSAID use PLAN: -Patient scheduled for EGD with Dr. Gibbons today -Keep patient p.o. -Continue IV Protonix BID Physician Rn Referral note has been reviewed by physician. Signing provider agrees with the documented findings, assessment, and plan of care. I have personally seen and examined the patient, reviewed the DIVER TENDER /PAs history, exam and MDM and agree with the assessment and plan as written. Based on total visit time, I have performed more than 50% of the visit. As above: Patient with epigastric pain and anemia. Will proceed with EGD at this time. Past Medical History Past Medical History: No Reported History History of Any Multi-Drug Resistant Organisms: None Reported Past Surgical History: Appendectomy, Section Past Psychological History: No Psychological Hx Reported Smoking Status: Former smoker Past Alcohol Use History: None Reported Past Drug Use History: None Reported Medications and Allergies Home Medications Medication Instructions Recorded Confirmed Type No Known Home Medications 06/24/24 06/24/24 History Allergies Allergy/AdvReac Type Severity Reaction Status Date / Time codeine Allergy Severe Anaphylaxis Verified 06/24/24 10:20 ondansetron Allergy Severe Anaphylaxis Verified 06/24/24 10:20 [From Zofran (as hydrochloride)] Surgical - Exam Vital Signs Temp Pulse Resp BP Pulse Ox 97.9 F 122 H 16 141/93 99 06/23/24 18:43 06/23/24 18:43 06/23/24 18:43 06/23/24 18:43 06/23/24 18:43 Results - Labs 06/24/24 20:08 06/25/24 04:17 Abnormal Lab Results - Last 24 Hours (Table) 06/24/24 06/25/24 Range/Units 20:08 04:17 RBC 3.49 L (3.80-5.40) m/uL Hgb 7.9 L (11.4-16.0) gm/dL Hct 26.3 L (34.0-46.0) % MCV 75.5 L (80.0-100.0) fL MCH 22.5 L (25.0-35.0) pg MCHC 29.8 L (31.0-37.0) g/dL RDW 16.3 H (11.5-15.5) % Total Bilirubin <0.2 L (0.3-1.2) mg/dL Total Protein 6.1 L (6.2-8.2) g/dL Diabetes panel 06/25/24 Range/Units 04:17 Sodium 140 (135-145) mmol/L Potassium 3.9 (3.5-5.5) mmol/L Chloride 106 (96-109) mmol/L Carbon Dioxide 24.4 (21.6-31.8) mmol/L BUN 9.3 (9.0-27.0) mg/dL Creatinine 0.6 (0.6-1.5) mg/dL Glucose 91 (70-110) mg/dL Calcium 8.9 (8.7-10.3) mg/dL AST 18 (13-35) U/L ALT 11 (8-44) U/L Alkaline Phosphatase 94 (41-126) U/L Total Protein 6.1 L (6.2-8.2) g/dL Albumin 3.8 (3.8-4.9) g/dL Calcium panel 06/25/24 Range/Units 04:17 Calcium 8.9 (8.7-10.3) mg/dL Albumin 3.8 (3.8-4.9) g/dL Pituitary panel 06/25/24 Range/Units 04:17 Sodium 140 (135-145) mmol/L Potassium 3.9 (3.5-5.5) mmol/L Chloride 106 (96-109) mmol/L Carbon Dioxide 24.4 (21.6-31.8) mmol/L BUN 9.3 (9.0-27.0) mg/dL Creatinine 0.6 (0.6-1.5) mg/dL Glucose 91 (70-110) mg/dL Calcium 8.9 (8.7-10.3) mg/dL Adrenal panel 06/25/24 Range/Units 04:17 Sodium 140 (135-145) mmol/L Potassium 3.9 (3.5-5.5) mmol/L Chloride 106 (96-109) mmol/L Carbon Dioxide 24.4 (21.6-31.8) mmol/L BUN 9.3 (9.0-27.0) mg/dL Creatinine 0.6 (0.6-1.5) mg/dL Glucose 91 (70-110) mg/dL Calcium 8.9 (8.7-10.3) mg/dL Total Bilirubin <0.2 L (0.3-1.2) mg/dL AST 18 (13-35) U/L ALT 11 (8-44) U/L Alkaline Phosphatase 94 (41-126) U/L Total Protein 6.1 L (6.2-8.2) g/dL Albumin 3.8 (3.8-4.9) g/dL
[2024-06-25] MEDS ORDERED: PROPOFOL 10 MG/ML 20 ML VIAL IV ONE (14:38)
[2024-06-25] MEDS ORDERED: LIDOCAINE 1% INJ 10MG/ML (20 ML MDV) ONE (14:38)
[2024-06-25] MEDS: IV FLUID CONTINUATION 1,000 ML IV ONE (14:40)
--- NOTE | 2024-06-25 14:56 | P.PCN ---
Date of Procedure: 06/25/24 Procedure(s) Performed: Preoperative Dx: Epigastric pain Postoperative Dx: Duodenal ulcer, gastritis Procedure: EGD with Bx Anesthesia: Sedation Endoscopist: Dr. Gibbons Specimens: Antrum Endoscopic Procedure: The patient was on the endoscopy table in the left decubitus position. The Olympus gastroscope was inserted into the oropharynx and passed under direct visualization to the region of the third portion of the duodenum. From that point the scope was slowly withdrawn inspecting all surfaces carefully. There was a large ulcer involving the posterior wall of the first portion of the duodenum. No active bleeding or adherent clot was seen. There was no visible vessel. The pylorus was widely patent. The stomach was carefully inspected. There was mild gastritis present. A biopsy of the antrum took place to rule out H. pylori. Retroflexion revealed a normal hiatus. The esophagus was then carefully examined. There were no neoplastic inflammatory or polypoid lesions throughout the visualized esophagus. The patient was then taken to the recovery room in stable condition per anesthesia guidelines. Recommendations: Begin liquid diet. Continue Protonix. Add Carafate.
[2024-06-25] MEDS: SUCRALFATE 1 GM TAB PO SCH (17:37)
[2024-06-26] MEDS: ZOLPIDEM 5 MG TAB PO PRN (01:34)
--- NOTE | 2024-06-26 08:52 | P.PN ---
Subjective Principal diagnosis: PUD EGD positive for ulcer. Patient feels about the same. No new voiding difficultes Objective - Vital Signs Vital signs: Vital Signs Temp 98.4 F 06/26/24 02:01 Pulse 89 06/26/24 02:01 Resp 16 06/26/24 02:01 BP 131/90 06/26/24 02:01 Pulse Ox 100 06/26/24 02:01 FiO2 Intake & Output 06/25/24 06/26/24 06/26/24 18:59 06:59 18:59 Intake Total 1018 Balance 1018 Intake: IV 300 Intake, IV Titration 600 Amount Sodium Chloride 0.9% 1, 600 000 ml @ 75 mls/hr IV . [id number] [facility] Rx#:[id number] Oral 118 Other: Voiding Method Toilet # Voids 3 2 # Bowel Movements 0 - Constitutional General appearance: Present: average body habitus, cooperative - Neck Neck: Absent: lymphadenopathy - Respiratory Respiratory: bilateral: diminished - Cardiovascular Rhythm: regular Heart sounds: normal: S1, S2 Abnormal Heart Sounds: Absent: S3 Gallop - Gastrointestinal General gastrointestinal: Present: soft, tenderness - Integumentary Integumentary: Absent: cellulitis - Labs CBC & Chem 7: 06/24/24 20:08 06/25/24 04:17 Labs: Abnormal Lab Results - Last 24 Hours (Table) 06/25/24 Range/Units 04:17 Total Bilirubin <0.2 L (0.3-1.2) mg/dL Total Protein 6.1 L (6.2-8.2) g/dL Assessment and Plan (1) PUD (peptic ulcer disease) Current Visit: Yes Status: Acute Code(s): K27.9 - PEPTIC ULC, SITE UNSP, UNSP AC OR CHR, W/O HEMOR OR PERF SNOMED Code(s): 65462665 (2) History of Current Visit: Yes Status: Acute Code(s): Z98.891 - HISTORY OF UTERINE SCAR FROM PREVIOUS SURGERY SNOMED Code(s): 508797902 (3) Abdominal pain Current Visit: No Status: Acute Code(s): R10.9 - UNSPECIFIED ABDOMINAL PAIN SNOMED Code(s): 81192452 Plan: Discussed about prognosis. Continue PPI. Check CBC in am Hopefully DC in AM Time with Patient: Less than 30
[2024-06-26 09:05] LABS: HCT 26.6 % (37.2-46.3); HGB 7.5 g/dL (12.0-15.0); MCH 21.7 pg (27.0-32.0); MCHC 28.2 g/dL (32.0-37.0); MCV 77.1 FL (80.0-97.0); Mean Platelet Volume 10.9 FL (9.5-12.2); NRBC Per 100 WBC 0 X 10*3/uL (0.00-0.01); Platelet Count 296 X 10*3/uL (140-440); RBC 3.45 X 10*6/uL (4.10-5.20); RDW 15.7 % (11.5-14.5); WBC 4.33 X 10*3/uL (4.50-10.00)
[2024-06-26 09:16] LABS: ALT 14 U/L (8-44); AST 19 U/L (13-35); Albumin 3.7 g/dL (3.8-4.9); Albumin/Globulin Ratio 1.54 Ratio (1.60-3.17); Alkaline Phosphatase 91 U/L (41-126); Blood Urea Nitrogen 4.5 mg/dL (9.0-27.0); Calcium 9.2 mg/dL (8.7-10.3); Carbon Dioxide 26.2 mmol/L (21.6-31.8); Chloride 106 mmol/L (96-109); Globulin 2.4 g/dL (1.6-3.3); Glucose 86 mg/dL (70-110); Potassium 3.8 mmol/L (3.5-5.5); Sodium 141 mmol/L (135-145); Total Bilirubin <0.2 mg/dL (0.3-1.2); Total Protein 6.1 g/dL (6.2-8.2)
[2024-06-26] MEDS: DOCUSATE 100 MG CAP PO SCH (10:40)
--- NOTE | 2024-06-26 10:47 | P.PN ---
Subjective Progress Note Date: 06/26/24 CHIEF COMPLAINT: Epigastric pain HISTORY OF PRESENT ILLNESS: Patient status post EGD with results reporting duodenal ulcer and gastritis. Patient tolerated clear liquids. She does continue to have epigastric abdominal pain. She denies any nausea and vomiting. Denies any blood in stools. Patient still needing pain medication. Vitals stable. WBC 4.3 Hgb 7.5 PHYSICAL EXAM: VITAL SIGNS: Reviewed. GENERAL: Well-developed in no acute distress. ABDOMEN: Soft. Nondistended. Epigastric tenderness NEUROLOGIC: Alert and oriented. Cranial nerves II through XII grossly intact. ASSESSMENT: 1. Epigastric abdominal pain with anemia status post EGD revealing a duodenal ulcer and gastritis PLAN: -Increase Protonix to twice a day -Continue Carafate -Advance diet to full liquids -Repeat CBC in a.m. -Continue to monitor Physician Deputy Sheriff Chief note has been reviewed by physician. Signing provider agrees with the documented findings, assessment, and plan of care. Objective - Vital Signs Vital signs: Vital Signs Temp 98.3 F 06/26/24 07:00 Pulse 92 06/26/24 07:00 Resp 16 06/26/24 07:00 BP 117/77 06/26/24 07:00 Pulse Ox 99 06/26/24 07:00 FiO2 Intake & Output 06/25/24 06/26/24 06/26/24 18:59 06:59 18:59 Intake Total 1018 118 Balance 1018 118 Intake: IV 300 Intake, IV Titration 600 Amount Sodium Chloride 0.9% 1, 600 000 ml @ 75 mls/hr IV . [id number] [facility] Rx#:[id number] Oral 118 118 Other: Voiding Method Toilet # Voids 3 2 # Bowel Movements 0 - Labs CBC & Chem 7: 06/26/24 06:20 06/26/24 06:20 Labs: Abnormal Lab Results - Last 24 Hours (Table) 06/26/24 06/26/24 Range/Units 06:20 06:20 WBC 4.33 L (4.50-10.00) X 10*3/uL RBC 3.45 L (4.10-5.20) X 10*6/uL Hgb 7.5 L (12.0-15.0) g/dL Hct 26.6 L (37.2-46.3) % MCV 77.1 L (80.0-97.0) FL MCH 21.7 L (27.0-32.0) pg MCHC 28.2 L (32.0-37.0) g/dL RDW 15.7 H (11.5-14.5) % BUN 4.5 L (9.0-27.0) mg/dL BUN/Creatinine Ratio 7.50 L (12.00-20.00) Ratio Total Bilirubin <0.2 L (0.3-1.2) mg/dL Total Protein 6.1 L (6.2-8.2) g/dL Albumin 3.7 L (3.8-4.9) g/dL Albumin/Globulin Ratio 1.54 L (1.60-3.17) Ratio
[2024-06-26] MEDS: PANTOPRAZOLE 40 MG/10 ML VIAL IVP SCH (20:55)
--- NOTE | 2024-06-27 08:39 | P.PN ---
Subjective Progress Note Date: 06/27/24 This is a 33-year-old female who presented to the emergency department with complaints of epigastric pain for the last month. Patient had a on May 16 and since patient has had a sharp and burning epigastric pain in the right upper quadrant that radiates to the back. Patient reports pain is worse with food intake. Recent imaging in the ER from a prior visit was negative. She reports pain is becoming more constant and is worsening in severity. Patient seen this morning laying in bed and is still reporting epigastric pain. 06/25/2024 Patient seen and evaluated laying in bed this morning. Patient reports she is still very uncomfortable from epigastric pain, and is having a difficult time getting comfortable in the bed. Patient was given Protonix yesterday, she reports it worked for a while but then pain returned. Dr. Blanco not regional ehs manager this week. Will ask general surgeon to see her for possible scope. Patient reports it hurts to eat. Vitals are stable. 06/27/2024 Patient seen and evaluated laying in bed this morning. She underwent an EGD on Monday which showed a duodenal ulcer and gastritis. Her Protonix has been increased to twice a day. She is on a full liquid diet. Patient reports this morning she still has a lot of discomfort and has no appetite. Patient is r eluctant to go home today due to her discomfort. Objective - Vital Signs Vital signs: Vital Signs Temp 98.2 F 06/27/24 07:10 Pulse 96 06/27/24 07:10 Resp 17 06/27/24 07:10 BP 115/77 06/27/24 07:10 Pulse Ox 100 06/27/24 07:10 FiO2 Intake & Output 06/26/24 06/27/24 06/27/24 18:59 06:59 18:59 Intake Total 236 Balance 236 Intake: Oral 236 Other: # Voids 7 2 - Constitutional General appearance: Present: cooperative, no acute distress - EENT Eyes: Present: PERRLA - Neck Neck: Present: normal ROM. Absent: lymphadenopathy, rigidity - Respiratory Respiratory: bilateral: CTA - Cardiovascular Rhythm: regular Heart sounds: normal: S1, S2 - Gastrointestinal General gastrointestinal: Present: soft. Absent: tenderness - Integumentary Integumentary: Present: normal, normal turgor - Psychiatric Psychiatric: Present: A&O x's 3 - Labs CBC & Chem 7: 06/26/24 06:20 06/26/24 06:20 Labs: Abnormal Lab Results - Last 24 Hours (Table) 06/26/24 06/26/24 Range/Units 06:20 06:20 WBC 4.33 L (4.50-10.00) X 10*3/uL RBC 3.45 L (4.10-5.20) X 10*6/uL Hgb 7.5 L (12.0-15.0) g/dL Hct 26.6 L (37.2-46.3) % MCV 77.1 L (80.0-97.0) FL MCH 21.7 L (27.0-32.0) pg MCHC 28.2 L (32.0-37.0) g/dL RDW 15.7 H (11.5-14.5) % BUN 4.5 L (9.0-27.0) mg/dL BUN/Creatinine Ratio 7.50 L (12.00-20.00) Ratio Total Bilirubin <0.2 L (0.3-1.2) mg/dL Total Protein 6.1 L (6.2-8.2) g/dL Albumin 3.7 L (3.8-4.9) g/dL Albumin/Globulin Ratio 1.54 L (1.60-3.17) Ratio Assessment and Plan (1) Intractable epigastric abdominal pain Current Visit: Yes Status: Acute Code(s): R10.13 - EPIGASTRIC PAIN SNOMED Code(s): 25485489 (2) History of Current Visit: Yes Status: Acute Code(s): Z98.891 - HISTORY OF UTERINE SCAR FROM PREVIOUS SURGERY SNOMED Code(s): 266701422 (3) Duodenal ulcer Current Visit: Yes Status: Acute Code(s): K26.9 - DUODENAL ULCER, UNSP ACUTE OR CHRONIC, W/O HEMOR OR PERF SNOMED Code(s): 91465227 (4) Gastritis Current Visit: Yes Status: Acute Code(s): K29.70 - GASTRITIS, UNSPECIFIED, WITHOUT BLEEDING SNOMED Code(s): 3443523 Plan: Await CBC results from today. Advance diet as directed by surgeon. Anticipate discharge tomorrow. Patient seen and evaluated by nurse practitioner, physician in agreement with plan
--- NOTE | 2024-06-27 11:02 | P.PN ---
Subjective Progress Note Date: 06/27/24 CHIEF COMPLAINT: Epigastric pain HISTORY OF PRESENT ILLNESS: Patient status post EGD with results reporting duodenal ulcer and gastritis. Patient had a few sips of tomato soup yesterday which did upset the stomach. She continues to have some abdominal pain. She does report feeling a little better than yesterday. She denies any nausea or vomiting. Afebrile. Labs for today pending PHYSICAL EXAM: VITAL SIGNS: Reviewed. GENERAL: Well-developed in no acute distress. ABDOMEN: Soft. Nondistended. Epigastric tenderness NEUROLOGIC: Alert and oriented. Cranial nerves II through XII grossly intact. ASSESSMENT: 1. Epigastric abdominal pain with anemia status post EGD revealing a duodenal ulcer and gastritis PLAN: -Continue Protonix and Carafate -Continue full liquid diet -Continue to monitor hemoglobin -Educated patient to avoid acidy foods, such as tomato soup Physician Breast Puller note has been reviewed by physician. Signing provider agrees with the documented findings, assessment, and plan of care. Objective - Vital Signs Vital signs: Vital Signs Temp 98.2 F 06/27/24 07:10 Pulse 96 06/27/24 07:10 Resp 17 06/27/24 07:10 BP 115/77 06/27/24 07:10 Pulse Ox 100 06/27/24 07:10 FiO2 Intake & Output 06/26/24 06/27/24 06/27/24 18:59 06:59 18:59 Intake Total 236 118 Balance 236 118 Intake: Oral 236 118 Other: # Voids 7 2 - Labs CBC & Chem 7: 06/26/24 06:20 06/26/24 06:20
[2024-06-27 11:13] LABS: HCT 27.9 % (37.2-46.3); HGB 7.9 g/dL (12.0-15.0); MCH 21.9 pg (27.0-32.0); MCHC 28.3 g/dL (32.0-37.0); MCV 77.5 FL (80.0-97.0); Mean Platelet Volume 10.7 FL (9.5-12.2); NRBC Per 100 WBC 0 X 10*3/uL (0.00-0.01); Platelet Count 322 X 10*3/uL (140-440); RDW 15.8 % (11.5-14.5); WBC 5.73 X 10*3/uL (4.50-10.00)
[2024-06-27 11:23] LABS: ALT 13 U/L (8-44); AST 22 U/L (13-35); Albumin 3.8 g/dL (3.8-4.9); Albumin/Globulin Ratio 1.58 Ratio (1.60-3.17); Alkaline Phosphatase 95 U/L (41-126); Blood Urea Nitrogen 3.9 mg/dL (9.0-27.0); Calcium 9.2 mg/dL (8.7-10.3); Carbon Dioxide 26.5 mmol/L (21.6-31.8); Chloride 104 mmol/L (96-109); Globulin 2.4 g/dL (1.6-3.3); Glucose 92 mg/dL (70-110); Potassium 4.1 mmol/L (3.5-5.5); Sodium 141 mmol/L (135-145); Total Bilirubin <0.2 mg/dL (0.3-1.2); Total Protein 6.2 g/dL (6.2-8.2)
[2024-06-28] MEDS: IOPAMIDOL CONTRAST (ORAL USE) VIAL PO PRN (09:08)
--- NOTE | 2024-06-28 10:36 | P.PN ---
Subjective Progress Note Date: 06/28/24 CHIEF COMPLAINT: Epigastric pain HISTORY OF PRESENT ILLNESS: Patient status post EGD with results reporting large duodenal ulcer and gastritis on 06/25/24. Patient having increased epigastric abdominal pain today. She reports her pain feels the same as what brought her into the hospital. And she had 2 episodes of hematemesis. She is mildly tachycardic. CBC for today pending. Hgb yesterday 7.9 PHYSICAL EXAM: VITAL SIGNS: Reviewed. GENERAL: no acute distress. ABDOMEN: Soft. Nondistended. very tender to palpation to epigastric area NEUROLOGIC: Alert and oriented. Cranial nerves II through XII grossly intact. ASSESSMENT: 1. Epigastric abdominal pain with anemia status post EGD revealing a large duodenal ulcer and gastritis PLAN: -Due to patient's hematemesis and tachycardia with large duodenal ulcer recommend transfer to tertiary care center to be evaluated by GI service. There is no GI service available at this facility this week -Patient made n.p.o. -CT scan abdomen and pelvis ordered for further evaluation of abdominal pain and to rule out perforation -Continue Protonix and Carafate -Stat CBC reordered. The first CBC was canceled. Nursing staff aware that CBC needs to be drawn Physician Kiln Burner note has been reviewed by physician. Signing provider agrees with the documented findings, assessment, and plan of care. I have personally seen and examined the patient, reviewed the SHELTER CASE MANAGER /PAs history, exam and MDM and agree with the assessment and plan as written. Based on total visit time, I have performed more than 50% of the visit. As above: Patient with increasing pain and some hematemesis today. Interestingly her hemoglobin came up from 7.9-8.7. I ordered a stat CAT scan which I reviewed with Dr. Soto. CAT scan shows no evidence of perforation and there is good contrast opacification of the duodenum. Resume liquid diet. Patient with poor nutrition over the last 2 to 3 weeks. Will request PICC line and TPN initiation. Strongly consider transfer to tertiary care center where GI services are available in case increased or further bleeding is noted. Objective - Vital Signs Vital signs: Vital Signs Temp 98.0 F 06/28/24 07:10 Pulse 104 H 06/28/24 07:10 Resp 16 06/28/24 07:10 BP 101/70 06/28/24 07:10 Pulse Ox 100 06/28/24 07:10 FiO2 Intake & Output 06/27/24 06/28/24 06/28/24 18:59 06:59 18:59 Intake Total 218 118 Balance 218 118 Intake: Oral 218 118 Other: Voiding Method Toilet # Voids 3 3 # Bowel Movements 0 - Labs CBC & Chem 7: 06/28/24 11:33 06/28/24 06:04 Labs: Abnormal Lab Results - Last 24 Hours (Table) 06/27/24 06/27/24 Range/Units 06:51 06:51 RBC 3.60 L (4.10-5.20) X 10*6/uL Hgb 7.9 L (12.0-15.0) g/dL Hct 27.9 L (37.2-46.3) % MCV 77.5 L (80.0-97.0) FL MCH 21.9 L (27.0-32.0) pg MCHC 28.3 L (32.0-37.0) g/dL RDW 15.8 H (11.5-14.5) % BUN 3.9 L (9.0-27.0) mg/dL BUN/Creatinine Ratio 6.50 L (12.00-20.00) Ratio Total Bilirubin <0.2 L (0.3-1.2) mg/dL Albumin/Globulin Ratio 1.58 L (1.60-3.17) Ratio
[2024-06-28 11:04] LABS: ALT 12 U/L (8-44); AST 21 U/L (13-35); Albumin 3.9 g/dL (3.8-4.9); Alkaline Phosphatase 105 U/L (41-126); Blood Urea Nitrogen 4.1 mg/dL (9.0-27.0); Calcium 9.2 mg/dL (8.7-10.3); Carbon Dioxide 23.5 mmol/L (21.6-31.8); Chloride 104 mmol/L (96-109); Globulin 2.6 g/dL (1.6-3.3); Glucose 87 mg/dL (70-110); HCT 30.3 % (37.2-46.3); HGB 8.4 g/dL (12.0-15.0); MCH 21.4 pg (27.0-32.0); MCHC 27.7 g/dL (32.0-37.0); MCV 77.1 FL (80.0-97.0); Mean Platelet Volume 10.7 FL (9.5-12.2); NRBC Per 100 WBC 0 X 10*3/uL (0.00-0.01); Platelet Count 283 X 10*3/uL (140-440); Potassium 3.7 mmol/L (3.5-5.5); RBC 3.93 X 10*6/uL (4.10-5.20); RDW 15.6 % (11.5-14.5); Sodium 139 mmol/L (135-145); Total Bilirubin 0.3 mg/dL (0.3-1.2); Total Protein 6.5 g/dL (6.2-8.2); WBC 3.44 X 10*3/uL (4.50-10.00)
--- NOTE | 2024-06-28 11:28 | CT ---
EXAMINATION TYPE: CT abdomen pelvis w con DATE OF EXAM: 06/28/2024 COMPARISON: 06/21/2024 INDICATION: Epigastric pain DLP: 387.70 mGycm, Automated exposure control for dose reduction was used. CONTRAST: 100 mL of Isovue 300. Study performed with Oral Contrast TECHNIQUE: Axial images were obtained from above the diaphragm to the pubic rami in the axial plane a t 5 mm thick sections. Reconstructed images are reviewed on the computer in the coronal plane. FINDINGS: Limited CT sections are obtained the lung bases. The lung bases are clear. CT ABDOMEN: Liver: Normal Spleen: Normal Pancreas: Normal Adrenal glands: The adrenal glands are normal. Gallbladder: Normal Kidneys: No masses are evident. No hydronephrosis is present. No cysts are present. Delayed images were obtained through the kidneys, which remain unremarkable. Aorta: Normal Inferior vena cava: Normal. CT PELVIS: Loops of bowel within the abdomen and pelvis are normal. There are loops of bowel which are incom pletely distended or lack oral contrast limiting their evaluation. Appendix: The may be a prior appendectomy. No suspicious dilated tubular structures. Urinary bladder: Normal. Genitourinary structures: Uterus appears unremarkable. There are likely cysts on the left ovary. Righ t adnexa appears normal. Osseous structures: No suspicious lytic or sclerotic lesions. IMPRESSION: 1. No suspicious acute changes to account for epigastric pain. [facility] Manuelito Weldon, , 06/28/2024 11:26 AM
[2024-06-28 11:46] LABS: HCT 30.2 % (34.0-46.0); HGB 8.7 gm/dL (11.4-16.0); Hypochromasia Marked; MCH 21.7 pg (25.0-35.0); MCHC 28.9 g/dL (31.0-37.0); MCV 75.2 fL (80.0-100.0); Mean Platelet Volume 7.5; Microcytosis Slight; Platelet Count 304 k/uL (150-450); RBC 4.02 m/uL (3.80-5.40); RDW 15.8 % (11.5-15.5); WBC 3.4 k/uL (3.8-10.6)
--- NOTE | 2024-06-28 13:36 | P.PN ---
Subjective Progress Note Date: 06/28/24 33-year-old female presenting with epigastric pain x 1 month status post C- section on May 16. Patient describes pain as sharp and burning worse in the right upper quadrant that radiates to the back. Patient reports that pain is worse with food intake. Patient was seen for this 2 days ago in the ER where ultrasound of the gallbladder, CT of the chest rule out PE, and CT of the abdomen and pelvis all returned negative. She was discharged with no definitive diagnosis, but reports pain has become constant and is worsening in severity. Denies urinary symptoms, fever, chills. No drainage or redness from incision sites. She has been following with OB who initially told her he believed the pain was musculoskeletal. She does have a history of an appendectomy, no other abdominal surgeries besides . Patient underwent EGD on 06/25/2024-- There was a large ulcer involving the posterior wall of the first portion of the duodenum. No active bleeding or adherent clot was seen. There was no visible vessel. The pylorus was widely patent. The stomach was carefully inspected. There was mild gastritis present. A biopsy of the antrum took place to rule out H. pylori. Retroflexion revealed a normal hiatus. The esophagus was then carefully examined. There were no neoplastic inflammatory or polypoid lesions throughout the visualized esophagus. Patient with increasing pain and some hematemesis today. Interestingly her hemoglobin came up from 7.9-8.7. Stat CAT scan shows no evidence of perforation and there is good contrast opacification of the duodenum. Resume liquid diet. Patient with poor nutrition over the last 2 to 3 weeks. Will request PICC line and TPN initiation. Strongly consider transfer to tertiary care center where GI services are available in case increased or further bleeding is noted. Objective - Vital Signs Vital signs: Vital Signs Temp 98.0 F 06/28/24 07:10 Pulse 104 H 06/28/24 07:10 Resp 16 06/28/24 07:10 BP 101/70 06/28/24 07:10 Pulse Ox 100 06/28/24 07:10 FiO2 Intake & Output 06/27/24 06/28/24 06/28/24 18:59 06:59 18:59 Intake Total 218 118 Balance 218 118 Intake: Oral 218 118 Other: Voiding Method Toilet # Voids 3 3 # Bowel Movements 0 - Exam General appearance: alert, in no apparent distress, anxious Head exam: Present: atraumatic, normocephalic, normal inspection Respiratory exam: Present: normal lung sounds bilaterally. Absent: respiratory distress, wheezes, rales, rhonchi, stridor Cardiovascular Exam: Present: regular rate, normal rhythm, normal heart sounds. Absent: systolic murmur, diastolic murmur, rubs, gallop, clicks GI/Abdominal exam: Present: soft, normal bowel sounds. Absent: distended, tenderness, guarding, rebound, rigid Neurological exam: Present: alert, oriented X3 Psychiatric exam: Present: normal affect, normal mood Skin exam: Present: warm, dry, intact, normal color. Absent: rash - Labs CBC & Chem 7: 06/28/24 11:33 06/28/24 06:04 Labs: Abnormal Lab Results - Last 24 Hours (Table) 06/27/24 06/27/24 Range/Units 06:51 06:51 RBC 3.60 L (4.10-5.20) X 10*6/uL Hgb 7.9 L (12.0-15.0) g/dL Hct 27.9 L (37.2-46.3) % MCV 77.5 L (80.0-97.0) FL MCH 21.9 L (27.0-32.0) pg MCHC 28.3 L (32.0-37.0) g/dL RDW 15.8 H (11.5-14.5) % BUN 3.9 L (9.0-27.0) mg/dL BUN/Creatinine Ratio 6.50 L (12.00-20.00) Ratio Total Bilirubin <0.2 L (0.3-1.2) mg/dL Albumin/Globulin Ratio 1.58 L (1.60-3.17) Ratio Assessment and Plan Assessment: 1. Epigastric abdominal pain with anemia status post EGD revealing a large duodenal ulcer and gastritis 2. Acute blood loss anemia; globin remained stable 3. Hematemesis; patient reports 3 episodes of blood with vomiting; reports significant amount of fresh red blood with third episode PLAN: -Due to patient's hematemesis and tachycardia with large duodenal ulcer recommend transfer to tertiary care center to be evaluated by GI service. There is no GI service available at this facility this week -Patient made n.p.o. -CT scan abdomen and pelvis ordered for further evaluation of abdominal pain and to rule out perforation -Continue Protonix and Carafate -Stat CBC reordered. The first CBC was canceled. Nursing staff aware that CBC needs to be drawn
[2024-06-29 01:38] LABS: Basophils % (A) 1 %; Eosinophils # (A) 0.1 k/uL (0-0.7); Eosinophils % (A) 2 %; HCT 29.5 % (34.0-46.0); HGB 8.8 gm/dL (11.4-16.0); Hypochromasia Marked; Lymphocytes # (A) 1.5 k/uL (1.0-4.8); Lymphocytes % (A) 39 %; MCH 22.1 pg (25.0-35.0); MCHC 29.7 g/dL (31.0-37.0); MCV 74.4 fL (80.0-100.0); Mean Platelet Volume 7.5; Microcytosis Slight; Monocytes # (A) 0.4 k/uL (0-1.0); Monocytes % (A) 9 %; Neutrophils # (A) 1.8 k/uL (1.3-7.7); Neutrophils % (A) 47 %; Platelet Count 292 k/uL (150-450); Poikilocytosis Slight; RBC 3.97 m/uL (3.80-5.40); WBC 3.8 k/uL (3.8-10.6)
--- NOTE | 2024-06-29 09:40 | P.PN ---
Subjective Progress Note Date: 06/29/24 This is a 33-year-old female who has had active leading from a duodenal ulcer. Patient apparently has been accepted for transfer to [facility]. We are awaiting a bed. On exam vital signs appear stable. Abdomen soft. Duodenal ulcer. Patient was to receive supportive care. Objective - Vital Signs Vital signs: Vital Signs Temp 97.6 F 06/29/24 07:00 Pulse 93 06/29/24 07:00 Resp 16 06/29/24 07:00 BP 109/69 06/29/24 07:00 Pulse Ox 100 06/29/24 07:00 FiO2 Intake & Output 06/28/24 06/29/24 06/29/24 18:59 06:59 18:59 Intake Total 118 Balance 118 Intake: Oral 118 Other: Voiding Method Toilet # Voids 2 1 - Labs CBC & Chem 7: 06/29/24 00:46 06/28/24 06:04 Labs: Abnormal Lab Results - Last 24 Hours (Table) 06/28/24 06/28/24 06/28/24 Range/Units 06:04 06:04 11:33 WBC 3.44 L 3.4 L (4.50-10.00) X 10*3/uL RBC 3.93 L (4.10-5.20) X 10*6/uL Hgb 8.4 L 8.7 L (12.0-15.0) g/dL Hct 30.3 L 30.2 L (37.2-46.3) % MCV 77.1 L 75.2 L (80.0-97.0) FL MCH 21.4 L 21.7 L (27.0-32.0) pg MCHC 27.7 L 28.9 L (32.0-37.0) g/dL RDW 15.6 H 15.8 H (11.5-14.5) % BUN 4.1 L (9.0-27.0) mg/dL Creatinine 0.5 L (0.6-1.5) mg/dL BUN/Creatinine Ratio 8.20 L (12.00-20.00) Ratio Albumin/Globulin Ratio 1.50 L (1.60-3.17) Ratio 06/29/24 Range/Units 00:46 WBC (4.50-10.00) X 10*3/uL RBC (4.10-5.20) X 10*6/uL Hgb 8.8 L (12.0-15.0) g/dL Hct 29.5 L (37.2-46.3) % MCV 74.4 L (80.0-97.0) FL MCH 22.1 L (27.0-32.0) pg MCHC 29.7 L (32.0-37.0) g/dL RDW 16.0 H (11.5-14.5) % BUN (9.0-27.0) mg/dL Creatinine (0.6-1.5) mg/dL BUN/Creatinine Ratio (12.00-20.00) Ratio Albumin/Globulin Ratio (1.60-3.17) Ratio
[2024-06-29 09:46] LABS: Basophils # (A) 0.02 X 10*3/uL (0.00-0.10); Basophils % (A) 0.6 %; Eosinophils # (A) 0.07 X 10*3/uL (0.04-0.35); Eosinophils % (A) 2.1 %; HCT 28.7 % (37.2-46.3); HGB 8.1 g/dL (12.0-15.0); Lymphocytes # (A) 1.39 X 10*3/uL (0.90-5.00); Lymphocytes % (A) 41.4 %; MCH 21.5 pg (27.0-32.0); MCHC 28.2 g/dL (32.0-37.0); MCV 76.1 FL (80.0-97.0); Mean Platelet Volume 10.9 FL (9.5-12.2); Monocytes # (A) 0.34 X 10*3/uL (0.20-1.00); Monocytes % (A) 10.1 %; NRBC Per 100 WBC 0 X 10*3/uL (0.00-0.01); Neutrophils # (A) 1.53 X 10*3/uL (1.80-7.70); Neutrophils % (A) 45.5 %; Platelet Count 294 X 10*3/uL (140-440); RBC 3.77 X 10*6/uL (4.10-5.20); RDW 15.6 % (11.5-14.5); WBC 3.36 X 10*3/uL (4.50-10.00)
[2024-06-29 11:15] LABS: BUN/Creat Ratio 6.83 Ratio (12.00-20.00); Blood Urea Nitrogen 4.1 mg/dL (9.0-27.0); Calcium 9.2 mg/dL (8.7-10.3); Carbon Dioxide 24.4 mmol/L (21.6-31.8); Chloride 104 mmol/L (96-109); Glucose 89 mg/dL (70-110); Sodium 139 mmol/L (135-145)
--- NOTE | 2024-06-29 18:42 | P.PN ---
Subjective Progress Note Date: 06/29/24 33-year-old female presenting with epigastric pain x 1 month status post C- section on May 16. Patient describes pain as sharp and burning worse in the right upper quadrant that radiates to the back. Patient reports that pain is worse with food intake. Patient was seen for this 2 days ago in the ER where ultrasound of the gallbladder, CT of the chest rule out PE, and CT of the abdomen and pelvis all returned negative. She was discharged with no definitive diagnosis, but reports pain has become constant and is worsening in severity. Denies urinary symptoms, fever, chills. No drainage or redness from incision sites. She has been following with OB who initially told her he believed the pain was musculoskeletal. She does have a history of an appendectomy, no other abdominal surgeries besides . Patient underwent EGD on 06/25/2024-- There was a large ulcer involving the posterior wall of the first portion of the duodenum. No active bleeding or adherent clot was seen. There was no visible vessel. The pylorus was widely patent. The stomach was carefully inspected. There was mild gastritis present. A biopsy of the antrum took place to rule out H. pylori. Retroflexion revealed a normal hiatus. The esophagus was then carefully examined. There were no neoplastic inflammatory or polypoid lesions throughout the visualized esophagus. Patient with increasing pain and some hematemesis today. Interestingly her hemoglobin came up from 7.9-8.7. Stat CAT scan shows no evidence of perforation and there is good contrast opacification of the duodenum. Resume liquid diet. Patient with poor nutrition over the last 2 to 3 weeks. Will request PICC line and TPN initiation. Strongly consider transfer to tertiary care center where GI services are available in case increased or further bleeding is noted. 06/29/2024 Patient is seen and evaluated in room at bedside; continues to report abdominal pain; no further episode of hematemesis Vital signs are reviewed and remained stable Labs are reviewed and hemoglobin stayed stable at 8.1 [facility]; patient has been accepted; await bed availability Objective - Vital Signs Vital signs: Vital Signs Temp 97.6 F 06/29/24 07:00 Pulse 93 06/29/24 07:00 Resp 16 06/29/24 07:00 BP 109/69 06/29/24 07:00 Pulse Ox 100 06/29/24 07:00 FiO2 Intake & Output 06/28/24 06/29/24 06/29/24 18:59 06:59 18:59 Intake Total 118 236 Balance 118 236 Intake: Oral 118 236 Other: Voiding Method Toilet # Voids 2 1 - Exam General appearance: alert, in no apparent distress, anxious Head exam: Present: atraumatic, normocephalic, normal inspection Respiratory exam: Present: normal lung sounds bilaterally. Absent: respiratory distress, wheezes, rales, rhonchi, stridor Cardiovascular Exam: Present: regular rate, normal rhythm, normal heart sounds. Absent: systolic murmur, diastolic murmur, rubs, gallop, clicks GI/Abdominal exam: Present: soft, normal bowel sounds. Absent: distended, tenderness, guarding, rebound, rigid Neurological exam: Present: alert, oriented X3 Psychiatric exam: Present: normal affect, normal mood Skin exam: Present: warm, dry, intact, normal color. Absent: rash - Labs CBC & Chem 7: 06/29/24 04:55 06/29/24 04:52 Labs: Abnormal Lab Results - Last 24 Hours (Table) 06/29/24 06/29/24 06/29/24 Range/Units 00:46 04:52 04:55 WBC 3.36 L (4.50-10.00) X 10*3/uL RBC 3.77 L (4.10-5.20) X 10*6/uL Hgb 8.8 L 8.1 L (11.4-16.0) gm/dL Hct 29.5 L 28.7 L (34.0-46.0) % MCV 74.4 L 76.1 L (80.0-100.0) fL MCH 22.1 L 21.5 L (25.0-35.0) pg MCHC 29.7 L 28.2 L (31.0-37.0) g/dL RDW 16.0 H 15.6 H (11.5-15.5) % Neutrophils # 1.53 L (1.80-7.70) X 10*3/uL BUN 4.1 L (9.0-27.0) mg/dL BUN/Creatinine Ratio 6.83 L (12.00-20.00) Ratio Assessment and Plan Assessment: 1. Epigastric abdominal pain with anemia status post EGD revealing a large duodenal ulcer and gastritis 2. Acute blood loss anemia; globin remained stable 3. Hematemesis; patient reports 3 episodes of blood with vomiting; reports significant amount of fresh red blood with third episode PLAN: -Due to patient's hematemesis and tachycardia with large duodenal ulcer recommend transfer to tertiary care center to be evaluated by GI service. There is no GI service available at this facility this week -Patient made n.p.o. -CT scan abdomen and pelvis ordered for further evaluation of abdominal pain and to rule out perforation -Continue Protonix and Carafate -Stat CBC reordered. The first CBC was canceled. Nursing staff aware that CBC needs to be drawn
[2024-06-30 09:07] LABS: Basophils % (A) 1 %; Eosinophils # (A) 0.1 k/uL (0-0.7); Eosinophils % (A) 1 %; HCT 28.8 % (34.0-46.0); Hypochromasia Marked; Lymphocytes # (A) 1.1 k/uL (1.0-4.8); Lymphocytes % (A) 26 %; MCH 20.9 pg (25.0-35.0); MCHC 27.8 g/dL (31.0-37.0); MCV 75.4 fL (80.0-100.0); Mean Platelet Volume 7.8; Microcytosis Slight; Monocytes # (A) 0.3 k/uL (0-1.0); Monocytes % (A) 7 %; Neutrophils # (A) 2.7 k/uL (1.3-7.7); Neutrophils % (A) 63 %; Platelet Count 321 k/uL (150-450); RBC 3.81 m/uL (3.80-5.40); RDW 15.6 % (11.5-15.5); WBC 4.2 k/uL (3.8-10.6)
--- NOTE | 2024-06-30 09:34 | P.PN ---
Subjective Progress Note Date: 06/30/24 Patient main stable. She is awaiting transfer to [facility]. She has had no further signs of GI bleed. On exam vital signs appear stable. Abdomen soft. History of duodenal ulcer. Patient will be transferred for GI services at [facility]. Objective - Vital Signs Vital signs: Vital Signs Temp 97.6 F 06/30/24 07:00 Pulse 94 06/30/24 07:00 Resp 17 06/30/24 07:00 BP 98/68 06/30/24 07:00 Pulse Ox 100 06/30/24 07:00 FiO2 Intake & Output 06/29/24 06/30/24 06/30/24 18:59 06:59 18:59 Intake Total 354 Balance 354 Intake: Oral 354 Other: Voiding Method Toilet # Voids 4 1 - Labs CBC & Chem 7: 06/30/24 04:54 06/29/24 04:52 Labs: Abnormal Lab Results - Last 24 Hours (Table) 06/29/24 06/29/24 06/30/24 Range/Units 04:52 04:55 04:54 WBC 3.36 L (4.50-10.00) X 10*3/uL RBC 3.77 L (4.10-5.20) X 10*6/uL Hgb 8.1 L 8.0 L (12.0-15.0) g/dL Hct 28.7 L 28.8 L (37.2-46.3) % MCV 76.1 L 75.4 L (80.0-97.0) FL MCH 21.5 L 20.9 L (27.0-32.0) pg MCHC 28.2 L 27.8 L (32.0-37.0) g/dL RDW 15.6 H 15.6 H (11.5-14.5) % Neutrophils # 1.53 L (1.80-7.70) X 10*3/uL BUN 4.1 L (9.0-27.0) mg/dL BUN/Creatinine Ratio 6.83 L (12.00-20.00) Ratio
[2024-06-30 11:26] LABS: BUN/Creat Ratio 7.83 Ratio (12.00-20.00); Blood Urea Nitrogen 4.7 mg/dL (9.0-27.0); Calcium 9.3 mg/dL (8.7-10.3); Chloride 105 mmol/L (96-109); Glucose 106 mg/dL (70-110); Potassium 4.3 mmol/L (3.5-5.5); Sodium 138 mmol/L (135-145)
[2024-06-30] MEDS: HYDROmorphone 1 MG/ML 1 ML SYRINGE IVP PRN (13:13)
--- NOTE | 2024-06-30 13:23 | P.PN ---
Subjective Progress Note Date: 06/30/24 33-year-old female presenting with epigastric pain x 1 month status post C- section on May 16. Patient describes pain as sharp and burning worse in the right upper quadrant that radiates to the back. Patient reports that pain is worse with food intake. Patient was seen for this 2 days ago in the ER where ultrasound of the gallbladder, CT of the chest rule out PE, and CT of the abdomen and pelvis all returned negative. She was discharged with no definitive diagnosis, but reports pain has become constant and is worsening in severity. Denies urinary symptoms, fever, chills. No drainage or redness from incision sites. She has been following with OB who initially told her he believed the pain was musculoskeletal. She does have a history of an appendectomy, no other abdominal surgeries besides . Patient underwent EGD on 06/25/2024-- There was a large ulcer involving the posterior wall of the first portion of the duodenum. No active bleeding or adherent clot was seen. There was no visible vessel. The pylorus was widely patent. The stomach was carefully inspected. There was mild gastritis present. A biopsy of the antrum took place to rule out H. pylori. Retroflexion revealed a normal hiatus. The esophagus was then carefully examined. There were no neoplastic inflammatory or polypoid lesions throughout the visualized esophagus. Patient with increasing pain and some hematemesis today. Interestingly her hemoglobin came up from 7.9-8.7. Stat CAT scan shows no evidence of perforation and there is good contrast opacification of the duodenum. Resume liquid diet. Patient with poor nutrition over the last 2 to 3 weeks. Will request PICC line and TPN initiation. Strongly consider transfer to tertiary care center where GI services are available in case increased or further bleeding is noted. 06/29/2024 Patient is seen and evaluated in room at bedside; continues to report abdominal pain; no further episode of hematemesis Vital signs are reviewed and remained stable Labs are reviewed and hemoglobin stayed stable at 8.1 [facility]; patient has been accepted; await bed availability 06/30/2024 Patient is seen and evaluated in room at bedside; continues to report abdominal pain; no further hematemesis reported -Vital signs are reviewed and remained stable Lab review shows a WBC of 4.2, hemoglobin of 8 which is stable from 8.1 yesterd ay Patient remains on IV Protonix and Carafate; has been accepted at [facility] and await bed opening -General Surgery on board and agreeable with transfer given no GI coverage at our facility Objective - Vital Signs Vital signs: Vital Signs Temp 97.6 F 06/30/24 07:00 Pulse 94 06/30/24 07:00 Resp 17 06/30/24 07:00 BP 98/68 06/30/24 07:00 Pulse Ox 100 06/30/24 07:00 FiO2 Intake & Output 06/29/24 06/30/24 06/30/24 18:59 06:59 18:59 Intake Total 354 Balance 354 Intake: Oral 354 Other: Voiding Method Toilet # Voids 4 1 - Labs CBC & Chem 7: 06/30/24 04:54 06/30/24 04:54 Labs: Abnormal Lab Results - Last 24 Hours (Table) 06/29/24 06/29/24 Range/Units 04:52 04:55 WBC 3.36 L (4.50-10.00) X 10*3/uL RBC 3.77 L (4.10-5.20) X 10*6/uL Hgb 8.1 L (12.0-15.0) g/dL Hct 28.7 L (37.2-46.3) % MCV 76.1 L (80.0-97.0) FL MCH 21.5 L (27.0-32.0) pg MCHC 28.2 L (32.0-37.0) g/dL RDW 15.6 H (11.5-14.5) % Neutrophils # 1.53 L (1.80-7.70) X 10*3/uL BUN 4.1 L (9.0-27.0) mg/dL BUN/Creatinine Ratio 6.83 L (12.00-20.00) Ratio
--- NOTE | 2024-07-01 08:59 | P.DS ---
Providers Date of admission: 06/24/24 03:42 Attending physician: Gilbert Can Consults: 06/24/24 08:32 Consult Physician Routine Consulting Provider: Lynda Blanco Consult Reason/Comments: epigastric pain Do you want consulting provider notified?: Yes 06/25/24 08:30 Consult Physician Routine Consulting Provider: Giovanni Gibbons Consult Reason/Comments: epigastric pain Do you want consulting provider notified?: Yes Primary care physician: Gilbert Can - Discharge Diagnosis(es) (1) Intractable epigastric abdominal pain Current Visit: Yes Status: Acute (2) History of Current Visit: Yes Status: Acute (3) Duodenal ulcer Current Visit: Yes Status: Acute (4) Gastritis Current Visit: Yes Status: Acute Hospital Course: This is a 33-year-old female who presented to the emergency department with complaints of epigastric pain for the last month. Patient had a on May 16 and since patient has had a sharp and burning epigastric pain in the right upper quadrant that radiates to the back. Patient reports pain is worse with food intake. Recent imaging in the ER from a prior visit was negative. She reports pain is becoming more constant and is worsening in severity. Patient underwent an EGD on Monday of last week which found a duodenal ulcer and gastritis. She was started on Protonix and Carafate. Patient continues to have severe epigastric pain and discomfort. Over the weekend patient did have some hemoptysis and since no GI coverage at this facility, transfer was initiated to [facility]. Patient may be transferred to [facility] when bed is available. Patient seen and evaluated by nurse practitioner, physician in agreement with plan Plan - Discharge Summary New Discharge Prescriptions: New Sucralfate [Carafate] 1 gm PO AC-TID tab Pantoprazole [Protonix] 40 mg PO DAILY 30 Days #30 tab Discharge Medication List Pantoprazole [Protonix] 40 mg PO DAILY 30 Days #30 tab 07/01/24 [Rx] Sucralfate [Carafate] 1 gm PO AC-TID tab 07/01/24 [Rx] Follow up Appointment(s)/Referral(s): Gilbert Can MD [Primary Care Provider] - 1-2 days Activity/Diet/Wound Care/Special Instructions: FOR TRANSFER CALL [facility] - P: ([id number]) - ([phone]) Call to notify of transfer and inquire if policy requires authorization Discharge Disposition: OTHER INSTITUTION NOT DEFINED
[2024-07-01 09:08] LABS: Basophils # (A) 0.04 X 10*3/uL (0.00-0.10); Basophils % (A) 0.7 %; Eosinophils % (A) 1.8 %; HCT 27.8 % (37.2-46.3); HGB 7.8 g/dL (12.0-15.0); Lymphocytes # (A) 1.77 X 10*3/uL (0.90-5.00); Lymphocytes % (A) 32.5 %; MCH 21.3 pg (27.0-32.0); MCHC 28.1 g/dL (32.0-37.0); MCV 75.7 FL (80.0-97.0); Mean Platelet Volume 10.6 FL (9.5-12.2); Monocytes # (A) 0.44 X 10*3/uL (0.20-1.00); Monocytes % (A) 8.1 %; NRBC Per 100 WBC 0 X 10*3/uL (0.00-0.01); Neutrophils # (A) 3.08 X 10*3/uL (1.80-7.70); Neutrophils % (A) 56.7 %; Platelet Count 319 X 10*3/uL (140-440); RBC 3.67 X 10*6/uL (4.10-5.20); RDW 15.4 % (11.5-14.5); WBC 5.44 X 10*3/uL (4.50-10.00)
--- NOTE | 2024-07-01 13:23 | P.PN ---
Subjective Progress Note Date: 07/01/24 CHIEF COMPLAINT: Epigastric pain HISTORY OF PRESENT ILLNESS: Patient status post EGD with results reporting large duodenal ulcer and gastritis on 06/25/24. Patient reports that her pain is less today. She did have episode of vomiting yesterday with which she believes may have been a small streak of blood. Patient reports still no significant appetite. She is nauseous. Afebrile. WBC is 5.44 hemoglobin 7.8 platelets 310. Pathology reports a moderate chronic inactive gastritis with reactive lymphoid aggregate. Positive for H. pylori. PHYSICAL EXAM: VITAL SIGNS: Reviewed. GENERAL: no acute distress. ABDOMEN: Soft. Nondistended. Mild tenderness with palpation to epigastric area NEUROLOGIC: Alert and oriented. Cranial nerves II through XII grossly intact. ASSESSMENT: 1. Epigastric abdominal pain with anemia status post EGD revealing a large duodenal ulcer and gastritis 2. Positive H. pylori PLAN: -Start H. pylori antibiotic treatment at discharge -Advance diet to full liquids -Continue Protonix and Carafate -Consult GI service regarding the large duodenal ulcer -No need for transfer from surgical standpoint at this time due to patient no longer having any hematemesis and tachycardia has improved. GI service is also available this week. Physician Completion Supervisor note has been reviewed by physician. Signing provider agrees with the documented findings, assessment, and plan of care. I have personally seen and examined the patient, reviewed the [employer] /PAs history, exam and MDM and agree with the assessment and plan as written. Based on total visit time, I have performed more than 50% of the visit. As above: Patient still having pain 6-7 out of 10. No further hematemesis. 2 episodes of vomiting since Monday. Abdomen remains tender although less so than previous. Labs noted. Still no GI coverage. Will advance diet. Continue antiacids. Objective - Vital Signs Vital signs: Vital Signs Temp 97.6 F 07/01/24 07:00 Pulse 91 07/01/24 07:00 Resp 16 07/01/24 07:00 BP 95/67 07/01/24 07:00 Pulse Ox 100 07/01/24 07:00 FiO2 Intake & Output 06/30/24 07/01/24 07/01/24 18:59 06:59 18:59 Intake Total 929 375 Balance 929 375 Intake: Intake, IV Titration 575 Amount Sodium Chloride 0.9% 1, 575 000 ml @ 75 mls/hr IV . [id number] [facility] Rx#:[id number] Oral 354 375 Other: Voiding Method Toilet Toilet # Bowel Movements 0 - Labs CBC & Chem 7: 07/01/24 04:40 06/30/24 04:54 Labs: Abnormal Lab Results - Last 24 Hours (Table) 06/30/24 07/01/24 Range/Units 04:54 04:40 RBC 3.67 L (4.10-5.20) X 10*6/uL Hgb 7.8 L (12.0-15.0) g/dL Hct 27.8 L (37.2-46.3) % MCV 75.7 L (80.0-97.0) FL MCH 21.3 L (27.0-32.0) pg MCHC 28.1 L (32.0-37.0) g/dL RDW 15.4 H (11.5-14.5) % BUN 4.7 L (9.0-27.0) mg/dL BUN/Creatinine Ratio 7.83 L (12.00-20.00) Ratio
[2024-07-01 20:58] VITALS: BP 122/80; PULSE 99; RESP 20; TEMP 98.2
== END 2024-07-01 21:06 | disposition short-term general hospital (02) | DRG 391 ==
LOC: EC 18:42 → OBSVTOIN 06-24 03:42 → 6NMEDSUR 06-24 03:42
PROVIDERS: ADMIT Family Medicine; ATTEND Family Medicine
PROC: 0DB78ZX Excision of Stomach, Pylorus, Via Natural or Artificial Opening Endoscopic, Diagnostic (ICD-10-PCS; principal; 2024-06-25 08:10)
DX: K29.50 Unspecified chronic gastritis without bleeding (principal); K26.4 Chronic or unspecified duodenal ulcer with hemorrhage; D62 Acute posthemorrhagic anemia; R04.2 Hemoptysis; B96.81 Helicobacter pylori [H. pylori] as the cause of diseases classified elsewhere; D50.9 Iron deficiency anemia, unspecified; Z79.1 Long term (current) use of non-steroidal anti-inflammatories (NSAID); Z98.891 History of uterine scar from previous surgery; Z87.891 Personal history of nicotine dependence
CPT/HCPCS: 25605; 36415; 43239; 74177; 80048; 80053; 81001; 81025; 82272; 83605; 83690; 84484; 85025; 85027; 88305; 88341; 88342; 93005; 96361; 96374; 96375; 99285

== ENCOUNTER 2025-02-13 17:12 | Emergency (ER) | payer OTHER ==
[2025-02-13] MEDS: ACETAMINOPHEN TAB 500 MG TAB PO STA (17:52)
--- NOTE | 2025-02-13 17:57 | ED ---
Lower Extremity Injury HPI - General Chief Complaint: Extremity Injury, Lower Stated Complaint: L foot injury Time Seen by Provider: 02/13/25 17:31 Source: patient, RN notes reviewed Mode of arrival: ambulatory Limitations: no limitations - History of Present Illness Initial Comments: This is a 34-year-old female who presents to the emergency department for left heel pain. Patient states that she accidentally rolled her left heel outside yesterday and has since had pain to this area going up the leg. This is making it difficult to ambulate. Denies hitting her head or sustaining any other injuries. MD Complaint: foot injury - Related Data Previous Rx's Medication Instructions Recorded Pantoprazole [Protonix] 40 mg PO DAILY 30 Days #30 tab 07/01/24 Sucralfate [Carafate] 1 gm PO AC-TID tab 07/01/24 Allergies Allergy/AdvReac Type Severity Reaction Status Date / Time codeine Allergy Severe Anaphylaxis Verified 06/24/24 10:20 ondansetron Allergy Severe Anaphylaxis Verified 06/24/24 10:20 [From Zofran (as hydrochloride)] Review of Systems ROS Statement: Those systems with pertinent positive or pertinent negative responses have been documented in the HPI. ROS Other: All systems not noted in ROS Statement are negative. Past Medical History Past Medical History: GERD/Reflux Additional Past Medical History / Comment(s): gi ulcer History of Any Multi-Drug Resistant Organisms: None Reported Past Surgical History: Appendectomy, Section Past Psychological History: No Psychological Hx Reported Smoking Status: Former smoker Past Alcohol Use History: None Reported Past Drug Use History: None Reported General Exam Limitations: no limitations General appearance: alert, in no apparent distress Head exam: Present: atraumatic, normocephalic, normal inspection Respiratory exam: Present: normal lung sounds bilaterally. Absent: respiratory distress, wheezes, rales, rhonchi, stridor Cardiovascular Exam: Present: regular rate, normal rhythm Extremities exam: Present: other (Tenderness to palpation over the left heel. Full range of motion. 2+ DP and PT pulses) Neurological exam: Present: alert, oriented X3, CN II-XII intact Psychiatric exam: Present: normal affect, normal mood Skin exam: Present: warm, dry, intact, normal color. Absent: rash Course Vital Signs 02/13/25 02/13/25 17:24 18:34 Temperature 97.9 F 97.6 F Pulse Rate 80 76 Respiratory 20 18 Rate Blood Pressure 126/80 132/76 O2 Sat by Pulse 98 99 Oximetry Medical Decision Making - Medical Decision Making This is a 34-year-old female who presents to the emergency department for left foot pain. Was pt. sent in by a medical professional or institution? @ -No Did you speak to anyone other than the patient for history? @ -No Did you review nursing and triage notes? @ -Yes, and I agree, it is accurate with regards to the patient's symptoms. Were old charts reviewed? @ -No Differential Diagnosis? @ -Differential Musculoskeletal Muscular strain, contusion, ligament sprain, fracture, arthritis, septic arthritis, bursitis, cellulitis, muscle spasm, nerve compression, DVT, arterial occlusion, herpes zoster, electrolyte abnormality, tumor.... This is not meant to be in all inclusive list EKG interpreted by me (3pts min.)? @ -Not obtained X-rays interpreted by me (1pt min.)? @ -X-ray of the left foot and tib-fib obtained. My interpretation identifies no acute fractures. CT interpreted by me (1pt min.)? @ -Not obtained U/S interpreted by me (1pt. min.)? @ -Not obtained What testing was considered but not performed? (CT, X-rays, U/S, labs)? Why? @ -None What meds were considered but not given? Why? @ -None Did you discuss the management of the patient with other professionals? @ -No Did you reconcile home meds? @ -No Was smoking cessation discussed for >3mins.? @ -No Was critical care preformed (if so, how long)? @ -No Were there social determinants of health that impacted care today? How? (Homelessness, low income, unemployed, alcoholism, drug addiction, transportation, low edu. Level, literacy, decrease access to med. care, [place] [facility], rehab)? @ -No Was there de-escalation of care discussed even if they declined? (Discuss DNR or withdrawal of care, Hospice)? @ -No What co-morbidities impacted this encounter? (DM, HTN, Smoking, COPD, CAD, Cancer, CVA, Hep., AIDS, mental health diagnosis, sleep apnea, morbid obesity)? @ -None Was patient admitted / discharged? @ -Discharged. X-ray of the left foot and tib-fib obtained revealing no acute process. Patient declined any pain medication in the emergency department. She was given a Velcro stirrup splint for support. Advised ibuprofen and Tylenol as needed for pain relief as well as ice and elevation. Patient discharged home in stable condition. Case discussed with ED attending Dr. Doyle. Return precautions reviewed in depth, the patient is instructed to return to the emergency department with any new, worsening, or concerning symptoms. Patient verbalized understanding. Undiagnosed new problem with uncertain prognosis? @ -None Drug Therapy requiring intensive monitoring for toxicity (Heparin, Nitro, Insulin, Cardizem)? @ -None Were any procedures done? @ -None Diagnosis/symptom? @ -Left foot sprain Acute, or Chronic, or Acute on Chronic? @ -Acute Uncomplicated (without systemic symptoms) or Complicated (systemic symptoms)? @ -Uncomplicated Side effects of treatment? @ -None Exacerbation, Progression, or Severe Exacerbation] @ -Not applicable Poses a threat to life or bodily function? @ -No - Radiology Data Radiology results: report reviewed, image reviewed Disposition Clinical Impression: Injury of left foot Disposition: HOME SELF-CARE Instructions (If sedation given, give patient instructions): Foot Sprain (ED) Additional Instructions: Return to the emergency department with any new, worsening, or concerning symptoms. Alternate with ibuprofen and Tylenol as needed for pain relief. Apply ice and elevate the leg. Follow up with your primary care provider in 1-2 days. Is patient prescribed a controlled substance at d/c from ED?: No Referrals: Gilbert Can MD [Primary Care Provider] - 1-2 days Time of Disposition: 18:28
--- NOTE | 2025-02-13 18:09 | XR ---
EXAMINATION TYPE: XR foot complete LT, XR tibia fibula LT DATE OF EXAM: 02/13/2025 6:05 PM INDICATION: Patient age:Female; 34 years old; Reason for study: Fall; PHH. pain COMPARISON: None TECHNIQUE: The left foot was examined in the AP, oblique, and lateral projections. The left tibia/fi bula was examined in AP and lateral projections. FINDINGS: No evidence of any acute osseous pathology. No evidence of soft tissue swelling. Joints are preserve d. IMPRESSION: No evidence of acute fracture. [facility], , 02/13/2025 6:07 PM
[2025-02-13 18:35] VITALS: BP 132/76; PULSE 76; RESP 18; TEMP 97.6
== END 2025-02-13 18:34 | disposition home or self-care (01) ==
LOC: EC 17:12
DX: S93.602A Unspecified sprain of left foot, initial encounter (principal); Z87.891 Personal history of nicotine dependence; Z88.8 Allergy status to other drugs, medicaments and biological substances; X50.9XXA Other and unspecified overexertion or strenuous movements or postures, initial encounter
CPT/HCPCS: 99283